=== PATIENT | female | born 1995 ===

== ENCOUNTER 2017-11-14 16:24 | Inpatient (IN) | payer SELFPAY ==
[~2017-11-14] VITALS: Ht 157.5 cm; Wt 84.8 kg
--- NOTE | 2017-11-14 16:42 | ED Fever ---
History of Present Illness General Stated Complaint: GENERAL PROBLEMS Source: patient Exam Limitations: no limitations History of Present Illness Date Seen by Provider: Nov 14, 2017 Time Seen by Provider: 16:41 Initial Comments Tanzanian-speaking only female presents to ER from [facility] with a report of 2 weeks of headache, neck ache, low back pain and dysuria. Poor appetite. Feverish. She completed a course of amoxicillin prescribed on 11/05/17 which was prescribed for the same complaints at [facility]. Timing/Duration: constant Associated Symptoms: headache, sore throat Allergies and Home Medications Allergies Coded Allergies: No Known Drug Allergies (Unverified , 11/14/17) Home Medications Unable to Obtain Active Prescriptions or Reported Meds Patient Home Medication List Home Medication List Reviewed: Yes Review of Systems Review of Systems Constitutional: see HPI, chills, fever, malaise, weakness EENTM: see HPI Respiratory: no symptoms reported Cardiovascular: no symptoms reported Genitourinary: no symptoms reported Musculoskeletal: see HPI, back pain Skin: no symptoms reported Psychiatric/Neurological: No Symptoms Reported Hematologic/Lymphatic: No Symptoms Reported Past Uzwdluh-Bgizhi-Xijihr Hx Patient Social History Recent Foreign Travel: No Contact w/Someone Who Travel: No Physical Exam Vital Signs - First Documented 11/14/17 16:49 Temp 98.2 Pulse 140 Resp 20 B/P (MAP) 143/85 (104) Pulse Ox 98 Capillary Refill : Height: '" Weight: lbs. oz. kg; BMI Method: General Appearance: WD/WN, no apparent distress Eyes: Bilateral Eye Normal Inspection, Bilateral Eye PERRL, Bilateral Eye EOMI HEENT: PERRL/EOMI, normal ENT inspection Neck: non-tender, full range of motion, other (no nuchal rigidity, able to flex chin to chest. ) Respiratory: no respiratory distress, no accessory muscle use Cardiovascular: no murmur, tachycardia Gastrointestinal: normal bowel sounds, non tender, soft Extremities: normal range of motion, non-tender Neurologic/Psychiatric: alert, normal mood/affect, oriented x 3 Skin: normal color, warm/dry Focused Exam Lactate Level 11/14/17 16:37: Lactic Acid Level 1.34 Lactic Acid Level Laboratory Tests Test 11/14/17 16:37 Lactic Acid Level 1.34 MMOL/L (0.50-2.00) Progress/Results/Core Measures Suspected Sepsis SIRS Temperature: Pulse: Respiratory Rate: Laboratory Tests 11/14/17 16:37: White Blood Count 16.2H Blood Pressure / Mean: 11/14/17 16:37: Lactic Acid Level 1.34 Laboratory Tests 11/14/17 16:37: Creatinine 0.75, Platelet Count 502H, Total Bilirubin 1.4H Results/Orders Lab Results Laboratory Tests Test 11/14/17 16:37 11/14/17 16:39 11/14/17 17:35 Range/Units White Blood Count 16.2 H 4.3-11.0 10^3/uL Red Blood Count 4.15 L 4.35-5.85 10^6/uL Hemoglobin 11.3 L 11.5-16.0 G/DL Hematocrit 35 35-52 % Mean Corpuscular Volume 83 80-99 FL Mean Corpuscular Hemoglobin 27 25-34 PG Mean Corpuscular Hemoglobin Concent 33 32-36 G/DL Red Cell Distribution Width 14.9 H 10.0-14.5 % Platelet Count 502 H 130-400 10^3/uL Mean Platelet Volume 9.7 7.4-10.4 FL Neutrophils (%) (Auto) 76 H 42-75 % Lymphocytes (%) (Auto) 15 12-44 % Monocytes (%) (Auto) 9 0-12 % Eosinophils (%) (Auto) 1 0-10 % Basophils (%) (Auto) 0 0-10 % Neutrophils # (Auto) 12.3 H 1.8-7.8 X 10^3 Lymphocytes # (Auto) 2.4 1.0-4.0 X 10^3 Monocytes # (Auto) 1.4 H 0.0-1.0 X 10^3 Eosinophils # (Auto) 0.2 0.0-0.3 10^3/uL Basophils # (Auto) 0.0 0.0-0.1 10^3/uL Neutrophils % (Manual) 81 % Lymphocytes % (Manual) 18 % Monocytes % (Manual) 1 % Eosinophils % (Manual) 0 % Basophils % (Manual) 0 % Band Neutrophils 0 % Blood Morphology Comment NORMAL Sodium Level 136 135-145 MMOL/L Potassium Level 3.8 3.6-5.0 MMOL/L Chloride Level 103 98-107 MMOL/L Carbon Dioxide Level 19 L 21-32 MMOL/L Anion Gap 14 5-14 MMOL/L Blood Urea Nitrogen 7 7-18 MG/DL Creatinine 0.75 0.60-1.30 MG/DL Estimat Glomerular Filtration Rate > 60 BUN/Creatinine Ratio 9 Glucose Level 105 70-105 MG/DL Lactic Acid Level 1.34 0.50-2.00 MMOL/L Calcium Level 9.3 8.5-10.1 MG/DL Corrected Calcium 9.2 8.5-10.1 MG/DL Total Bilirubin 1.4 H 0.1-1.0 MG/DL Aspartate Amino Transf (AST/SGOT) 18 5-34 U/L Alanine Aminotransferase (ALT/SGPT) 34 0-55 U/L Alkaline Phosphatase 112 40-136 U/L Total Protein 8.3 H 6.4-8.2 GM/DL Albumin 4.1 3.2-4.5 GM/DL Serum Test, Qualitative NEGATIVE NEGATIVE Monoscreen NEGATIVE NEGATIVE Group A Streptococcus Screen NEGATIVE NEGATIVE Urine Color YELLOW Urine Clarity CLEAR Urine pH 7 5-9 Urine Specific [place] 1.005 L 1.016-1.022 Urine Protein NEGATIVE NEGATIVE Urine Glucose (UA) NEGATIVE NEGATIVE Urine Ketones NEGATIVE NEGATIVE Urine Nitrite NEGATIVE NEGATIVE Urine Bilirubin NEGATIVE NEGATIVE Urine Urobilinogen 1 NORMAL MG/DL Urine Leukocyte Esterase 2+ H NEGATIVE Urine RBC (Auto) 2+ H NEGATIVE Urine RBC 0-2 /HPF Urine WBC 10-25 H /HPF Urine Squamous Epithelial Cells 5-10 /HPF Urine Crystals NONE /LPF Urine Bacteria MODERATE H /HPF Urine Casts NONE /LPF Urine Mucus NEGATIVE /LPF Urine Culture Indicated YES My Orders Orders - AIDA JO APRN Cbc With Automated Diff (11/14/17 16:27) Comprehensive Metabolic Panel (11/14/17 16:27) Ua Culture If Indicated (11/14/17 16:27) Blood Culture (11/14/17 16:27) Lactic Acid Analyzer (11/14/17 16:27) Hcg,Qualitative Serum (11/14/17 16:27) Rapid Strep A Screen (11/14/17 16:27) Monotest (11/14/17 16:27) Chest 1 View, Ap/Pa Only (11/14/17 16:27) Iv Heplock-Insert (Order) (11/14/17 16:27) Ct Head Wo (11/14/17 16:39) Ns Iv 1000 Ml (Sodium Chloride 0.9%) (11/14/17 16:45) Fentanyl Injection (Sublimaze Injection (11/14/17 16:45) Manual Differential (11/14/17 16:37) Ct Abdomen/Pelvis W (11/14/17 16:57) Iohexol Injection (Omnipaque 350 Mg/Ml 1 (11/14/17 17:45) Sodium Chloride Flush (Catheter Flush Sy (11/14/17 17:45) Ns (Ivpb) (Sodium Chloride 0.9%) (11/14/17 17:45) Pharmacy Communication (Pharmacy Communi (11/14/17 17:38) Urine Culture (11/14/17 17:35) Ns Iv 1000 Ml (Sodium Chloride 0.9%) (11/14/17 18:30) Medications Given in ED Current Medications Medications Dose Ordered Sig/Lino Route Start Time Stop Time Status Last Admin Dose Admin Fentanyl Citrate 50 mcg ONCE ONCE IVP 11/14/17 16:45 11/14/17 16:46 DC 11/14/17 16:45 50 MCG Iohexol 100 ml ONCE ONCE IV 11/14/17 17:45 11/14/17 17:46 DC 11/14/17 17:39 100 ML Sodium Chloride 10 ml NEEDED PRN IV 11/14/17 17:45 11/14/17 17:39 10 ML Sodium Chloride 250 ml ONCE ONCE IV 11/14/17 17:45 11/14/17 17:46 DC 11/14/17 17:39 80 ML Vital Signs/I&O 11/14/17 16:49 Temp 98.2 Pulse 140 Resp 20 B/P (MAP) 143/85 (104) Pulse Ox 98 Capillary Refill : Diagnostic Imaging Diagonstic Imaging: Xray Comments NAME: TALITA CHOWDHURY Francois [facility] REC#: [id number] PT STATUS: REG ER : 1995 PHYSICIAN: AIDA JO APRN ADMIT DATE: 11/14/17/ER Draft Date of Exam:11/14/17 CHEST 1 VIEW, AP/PA ONLY INDICATION: Elevated blood cell counts. FINDINGS: The heart size and vascularity are normal. The lungs are clear. No edema, pneumonia, effusion, or pneumothorax. IMPRESSION: Negative. Dictated on workstation # [id number] Dict: 11/14/17 1722 Trans: 11/14/17 1754 [id number] Interpreted by: DONAVAN GARSIA Electronically signed by: NAME: TALITA CHOWDHURY [facility] REC#: [id number] PT STATUS: REG ER : 1995 PHYSICIAN: AIDA JO APRN ADMIT DATE: 11/14/17/ER Draft Date of Exam:11/14/17 CT HEAD WO PROCEDURE: CT head without contrast. TECHNIQUE: Multiple contiguous axial images were obtained through the brain without the use of intravenous contrast. INDICATION: Headache and fever. Increased white blood cell count. Back pain. FINDINGS: There are no CT findings of acute intracranial hemorrhage. There is no evidence of intracranial mass effect or shift. There is no hydrocephalus. There is no abnormal extra-axial fluid collection. There are no findings of territorial loss of coburn-white differentiation. There is no abnormal hypodensity within the basal ganglia. Posterior fossa unremarkable. The mastoid air cells appear clear. Visualized paranasal sinuses are clear. Orbital contents unremarkable. There is no acute calvarial abnormality. IMPRESSION: 1. No CT evidence of an acute intracranial abnormality. 2. Negative head CT does not, however, exclude the possibility of meningitis. Dictated on workstation # [id number] Dict: 11/14/17 1740 Trans: 11/14/17 1754 [facility] [id number] Interpreted by: ZECHARIAH AVERY MD Electronically signed by: NAME: TALITA CHOWDHURY [facility] REC#: [id number] PT STATUS: REG ER : 1995 PHYSICIAN: AIDA JO APRN ADMIT DATE: 11/14/17/ER Draft Date of Exam:11/14/17 CT ABDOMEN/PELVIS W PROCEDURE: CT abdomen and pelvis with contrast. TECHNIQUE: Multiple contiguous axial images were obtained through the abdomen and pelvis after administration of intravenous contrast. INDICATION: Head pain, fever, elevated white blood cell count, back pain. I have no priors. There are no opaque urinary tract calculi, however, the some mild ectasia of the right ureter showing urothelial thickening at its mid to proximal third as well as some urothelial thickening at the right renal pelvis. The right renal parenchyma also appears somewhat heterogeneous and hypoenhancing. The right kidney may be mildly enlarged when compared to the left and there is some mild right-sided perinephric edema. The constellation of findings are suggestive of features owing to pyelonephritis, correlate with urinalysis if not already performed. As an alternative in the appropriate clinical scenario, this pattern can be seen in the setting of a recently passed stone, however, no stones within the bladder lumen are evident. The left kidney and ureter appeared unremarkable. The liver, gallbladder, spleen, adrenals and pancreas unremarkable. The osseous structures appeared unremarkable. There is no abscess or fluid collection. The uterus and adnexa normal. IMPRESSION: 1. CT findings are most suggestive of a right-sided pyelonephritis without abscess. There is mild perinephric edema and mild urothelial thickening with minimal ureteral ectasia. Recently passed stone could conceivably have this appearance but is felt less likely, although warrants clinical correlation and urinalysis. 2. No other acute appearing abnormality. Dictated on workstation # [id number] Dict: 11/14/17 1739 Trans: 11/14/17 1819 [facility] [id number] Interpreted by: DONAVAN GARSIA Electronically signed by: Departure Communication (Admissions) Time/Spoke to Admitting Phy: 18:35 1835-she feels overall better but some persistent right flank pain. Another 50 g of fentanyl ordered. We will do Rocephin. I spoke with Dr. Alexandre. We'll admit observation IV fluids and Rocephin and antipyretics. Impression Primary Impression: Urinary tract infection Qualified Codes: N10 - Acute pyelonephritis Additional Impression: Pyelonephritis Disposition: 01 HOME, SELF-CARE Condition: Stable Admissions Decision to Admit Reason: Admit from ER (General) Decision to Admit/Date: Nov 14, 2017 Time/Decision to Admit Time: 18:35 Departure-Patient Inst. Referrals: NO,LOCAL PHYSICIAN (PCP/Family) Primary Care Physician Scripts Unable to Obtain Active Prescriptions or Reported Meds AIDA JO APRN Nov 14, 2017 16:42
[2017-11-14] MEDS ORDERED: NS IV 1000 ML 1,000 ML IV SCH ×2 (16:45→18:30)
[2017-11-14] MEDS ORDERED: fentaNYL INJECTION 100 MCG/2 ML AMP IVP ONE ×2 (16:45→18:45)
[2017-11-14 16:48] LABS: BASOPHILS % (AUTO) 0 % (0-10); EOSINOPHILS # (AUTO) 0.2 10^3/uL (0.0-0.3); EOSINOPHILS % (AUTO) 1 % (0-10); HEMATOCRIT 35 % (35-52); HEMOGLOBIN 11.3 G/DL (11.5-16.0); LYMPHOCYTES # (AUTO) 2.4 X 10^3 (1.0-4.0); LYMPHOCYTES % (AUTO) 15 % (12-44); MEAN CORPUSCULAR HEMOGLOBIN 27 PG (25-34); MEAN CORPUSCULAR HGB CONC 33 G/DL (32-36); MEAN CORPUSCULAR VOLUME 83 FL (80-99); MEAN PLATELET VOLUME 9.7 FL (7.4-10.4); MONOCYTES # (AUTO) 1.4 X 10^3 (0.0-1.0); MONOCYTES % (AUTO) 9 % (0-12); NEUTROPHILS # (AUTO) 12.3 X 10^3 (1.8-7.8); NEUTROPHILS % (AUTO) 76 % (42-75); PLATELET COUNT 502 10^3/uL (130-400); RED BLOOD COUNT 4.15 10^6/uL (4.35-5.85); RED CELL DISTRIBUTION WIDTH 14.9 % (10.0-14.5); WHITE BLOOD COUNT 16.2 10^3/uL (4.3-11.0)
[2017-11-14 17:07] LABS: ALANINE AMINOTRANSFERASE 34 U/L (0-55); ALBUMIN 4.1 GM/DL (3.2-4.5); ALKALINE PHOSPHATASE 112 U/L (40-136); BILIRUBIN,TOTAL 1.4 MG/DL (0.1-1.0); BUN/CREATININE RATIO 9; CALCIUM 9.3 MG/DL (8.5-10.1); CARBON DIOXIDE 19 MMOL/L (21-32); CHLORIDE 103 MMOL/L (98-107); CREATININE SERUM 0.75 MG/DL (0.60-1.30); GFR ESTIMATED > 60; GLUCOSE 105 MG/DL (70-105); POTASSIUM 3.8 MMOL/L (3.6-5.0); SODIUM 136 MMOL/L (135-145); TOTAL PROTEIN 8.3 GM/DL (6.4-8.2)
[2017-11-14 17:15] LABS: BAND NEUTROPHILS 0 %; BASOPHILS % (MANUAL) 0 %; EOSINOPHILS % (MANUAL) 0 %; LYMPHOCYTES % (MANUAL) 18 %; MONOCYTES % (MANUAL) 1 %; NEUTROPHILS % (MANUAL) 81 %; RBC MORPH NORMAL
[2017-11-14 17:39] LABS: BILIRUBIN,URINE NEGATIVE (NEGATIVE); CLARITY,URINE CLEAR; COLOR,URINE YELLOW; GLUCOSE, URINE (UA) NEGATIVE (NEGATIVE); KETONES,URINE NEGATIVE (NEGATIVE); LEUKOCYTE ESTERASE ,URINE 2+ (NEGATIVE); NITRITE,URINE NEGATIVE (NEGATIVE); PH,URINE 7 (5-9); PROTEIN,URINE NEGATIVE (NEGATIVE); UROBILINOGEN,URINE 1 MG/DL (NORMAL)
[2017-11-14 17:45] LABS: BACTERIA,URINE MODERATE /HPF; RBC,URINE 0-2 /HPF
[2017-11-14] MEDS ORDERED: CATHETER FLUSH 10 ML SYR IV PRN (17:45)
[2017-11-14] MEDS ORDERED: NS 250 ML (IVPB) BAG IV ONE (17:45)
[2017-11-14] MEDS ORDERED: IOHEXOL 350 MG/ML 100 ML (OMNIPAQUE 350) VIAL IV ONE (17:45)
--- NOTE | 2017-11-14 17:54 | Diagnostic Imaging Report ---
INDICATION: Elevated blood cell counts. FINDINGS: The heart size and vascularity are normal. The lungs are clear. No edema, pneumonia, effusion, or pneumothorax. IMPRESSION: Negative. Dictated by: Dictated on workstation # [id number]
--- NOTE | 2017-11-14 17:55 | Diagnostic Imaging Report ---
PROCEDURE: CT head without contrast. TECHNIQUE: Multiple contiguous axial images were obtained through the brain without the use of intravenous contrast. INDICATION: Headache and fever. Increased white blood cell count. Back pain. FINDINGS: There are no CT findings of acute intracranial hemorrhage. There is no evidence of intracranial mass effect or shift. There is no hydrocephalus. There is no abnormal extra-axial fluid collection. There are no findings of territorial loss of coburn-white differentiation. There is no abnormal hypodensity within the basal ganglia. Posterior fossa unremarkable. The mastoid air cells appear clear. Visualized paranasal sinuses are clear. Orbital contents unremarkable. There is no acute calvarial abnormality. IMPRESSION: 1. No CT evidence of an acute intracranial abnormality. 2. Negative head CT does not, however, exclude the possibility of meningitis. Dictated by: Dictated on workstation # [id number]
--- NOTE | 2017-11-14 18:20 | Diagnostic Imaging Report ---
PROCEDURE: CT abdomen and pelvis with contrast. TECHNIQUE: Multiple contiguous axial images were obtained through the abdomen and pelvis after administration of intravenous contrast. INDICATION: Head pain, fever, elevated white blood cell count, back pain. I have no priors. There are no opaque urinary tract calculi, however, the some mild ectasia of the right ureter showing urothelial thickening at its mid to proximal third as well as some urothelial thickening at the right renal pelvis. The right renal parenchyma also appears somewhat heterogeneous and hypoenhancing. The right kidney may be mildly enlarged when compared to the left and there is some mild right-sided perinephric edema. The constellation of findings are suggestive of features owing to pyelonephritis, correlate with urinalysis if not already performed. As an alternative in the appropriate clinical scenario, this pattern can be seen in the setting of a recently passed stone, however, no stones within the bladder lumen are evident. The left kidney and ureter appeared unremarkable. The liver, gallbladder, spleen, adrenals and pancreas unremarkable. The osseous structures appeared unremarkable. There is no abscess or fluid collection. The uterus and adnexa normal. IMPRESSION: 1. CT findings are most suggestive of a right-sided pyelonephritis without abscess. There is mild perinephric edema and mild urothelial thickening with minimal ureteral ectasia. Recently passed stone could conceivably have this appearance but is felt less likely, although warrants clinical correlation and urinalysis. 2. No other acute appearing abnormality. Dictated by: Dictated on workstation # [id number]
[2017-11-14] MEDS ORDERED: cefTRIAXone FOR IV USE 1,000 MG in NS (IVPB) 50 ML IV ONE (18:45)
[2017-11-14 20:05] VITALS: BP 121/63
[2017-11-14] MEDS ORDERED: ONDANSETRON 4 MG/2 ML (SDV) Z0FRAN IVP PRN (20:30)
[2017-11-14] MEDS: NS IV 1000 ML 1,000 ML IV SCH (21:20)
[2017-11-14] MEDS: fentaNYL INJECTION 100 MCG/2 ML AMP IVP PRN (21:20)
[2017-11-15] MEDS: fentaNYL INJECTION 100 MCG/2 ML AMP IVP PRN ×3 (00:01→11:25)
[2017-11-15] MEDS: IBUPROFEN 800 MG (MOTRIN) TAB PO PRN ×3 (00:02→20:44)
[2017-11-15 00:13] VITALS: BP 134/82
[2017-11-15] MEDS: ACETAMINOPHEN 325 MG TABLET PO PRN ×3 (00:38→17:42)
[2017-11-15 04:00] VITALS: BP 121/65
[2017-11-15] MEDS: NS IV 1000 ML 1,000 ML IV SCH ×3 (05:27→22:27)
[2017-11-15 06:08] LABS: BASOPHILS % (AUTO) 0 % (0-10); EOSINOPHILS # (AUTO) 0.3 10^3/uL (0.0-0.3); EOSINOPHILS % (AUTO) 2 % (0-10); HEMATOCRIT 30 % (35-52); HEMOGLOBIN 9.9 G/DL (11.5-16.0); LYMPHOCYTES # (AUTO) 2.8 X 10^3 (1.0-4.0); LYMPHOCYTES % (AUTO) 27 % (12-44); MEAN CORPUSCULAR HEMOGLOBIN 28 PG (25-34); MEAN CORPUSCULAR HGB CONC 33 G/DL (32-36); MEAN CORPUSCULAR VOLUME 85 FL (80-99); MEAN PLATELET VOLUME 9.8 FL (7.4-10.4); MONOCYTES # (AUTO) 1.2 X 10^3 (0.0-1.0); MONOCYTES % (AUTO) 12 % (0-12); NEUTROPHILS % (AUTO) 58 % (42-75); PLATELET COUNT 390 10^3/uL (130-400); RED BLOOD COUNT 3.54 10^6/uL (4.35-5.85); RED CELL DISTRIBUTION WIDTH 14.7 % (10.0-14.5); WHITE BLOOD COUNT 10.3 10^3/uL (4.3-11.0)
[2017-11-15 06:31] LABS: ALANINE AMINOTRANSFERASE 35 U/L (0-55); ALBUMIN 3.4 GM/DL (3.2-4.5); ALKALINE PHOSPHATASE 99 U/L (40-136); BILIRUBIN,TOTAL 0.8 MG/DL (0.1-1.0); BUN/CREATININE RATIO 11; CALCIUM 8.5 MG/DL (8.5-10.1); CARBON DIOXIDE 20 MMOL/L (21-32); CHLORIDE 109 MMOL/L (98-107); CREATININE SERUM 0.63 MG/DL (0.60-1.30); GFR ESTIMATED > 60; GLUCOSE 115 MG/DL (70-105); POTASSIUM 3.7 MMOL/L (3.6-5.0); SODIUM 138 MMOL/L (135-145); TOTAL PROTEIN 6.6 GM/DL (6.4-8.2)
[2017-11-15] MEDS ORDERED: FLU QUADRIvalent (5+ YOA) 2018-2019 (AFLURIA) 0.5 ML IM ONE (07:30)
[2017-11-15 08:00] VITALS: BP 103/61
[2017-11-15 12:00] VITALS: BP 135/63
--- NOTE | 2017-11-15 13:32 | History & Physicial (CHS) ---
HPI History of Present Illness: 22 yo F that has a week h/o febile illness. Patient states that she has been getting worse over the last few days and now having fevers with Right back pain and headache. She also had not had a BM in the last 5 days. States that she has not been able to eat due to nausea. Never had anything like this in the past Source: patient, family (Sister was translating for patient) Exam Limitations: no limitations Date seen by provider: Nov 15, 2017 Time Seen by Provider: 11:45 Attending Physician Pura Alexandre MD [place] [place] Consult Date of Admission Nov 14, 2017 at 6:34 pm Home Medications Home Medications Reviewed patient Home Medication Reconciliation performed by pharmacy medication reconciliations video game repair technician and/or nursing. Patients Allergies have been reviewed. Allergies Coded Allergies: No Known Drug Allergies (Unverified , 11/14/17) EIA-Wqcszd-Ejalch Hx Patient Social History Living Status: Lives with parents Alcohol Use: Occasionally Uses Recreational Drug Use: No Smoking Status: Current Everyday Smoker Type Used: Cigarettes Recent Foreign Travel: No Contact w/other who traveled: No Recent Hopitalizations: No Recent Infectious Disease Expo: No Physical Abuse Screen: No Sexual Abuse: No Past Medical History NA Review of Systems ([facility]) Constitutional: chills, fever, malaise EENTM: no symptoms reported; No throat pain Respiratory: no symptoms reported; No cough, No dyspnea on exertion, No short of breath, No wheezing Cardiovascular: no symptoms reported; No chest pain, No edema, No palpitations Gastrointestinal: abdominal pain, loss of appetite, nausea, vomiting Genitourinary: dysuria, frequency, hesitancy : No Musculoskeletal: back pain (Right sided) Skin: no symptoms reported Psychiatric/Neurological: Headache; Denies Numbness, Denies Weakness Reviewed Test Results Reviewed Test Results Lab Laboratory Tests 11/14/17 16:37 11/15/17 05:27 Radiology Date of Exam: 11/14/17 CT ABDOMEN/PELVIS W PROCEDURE: CT abdomen and pelvis with contrast. TECHNIQUE: Multiple contiguous axial images were obtained through the abdomen and pelvis after administration of intravenous contrast. INDICATION: Head pain, fever, elevated white blood cell count, back pain. I have no priors. There are no opaque urinary tract calculi, however, the some mild ectasia of the right ureter showing urothelial thickening at its mid to proximal third as well as some urothelial thickening at the right renal pelvis. The right renal parenchyma also appears somewhat heterogeneous and hypoenhancing. The right kidney may be mildly enlarged when compared to the left and there is some mild right-sided perinephric edema. The constellation of findings are suggestive of features owing to pyelonephritis, correlate with urinalysis if not already performed. As an alternative in the appropriate clinical scenario, this pattern can be seen in the setting of a recently passed stone, however, no stones within the bladder lumen are evident. The left kidney and ureter appeared unremarkable. The liver, gallbladder, spleen, adrenals and pancreas unremarkable. The osseous structures appeared unremarkable. There is no abscess or fluid collection. The uterus and adnexa normal. IMPRESSION: 1. CT findings are most suggestive of a right-sided pyelonephritis without abscess. There is mild perinephric edema and mild urothelial thickening with minimal ureteral ectasia. Recently passed stone could conceivably have this appearance but is felt less likely, although warrants clinical correlation and urinalysis. 2. No other acute appearing abnormality. Physical Exam-(CHC) Physical Exam Vital Signs VS - Last 72 Hours, by Label 11/14/17 11/14/17 11/14/17 11/14/17 16:49 19:45 20:05 22:48 Temp 98.2 98.2 98.3 Pulse 140 140 96 92 Resp 20 20 18 B/P (MAP) 143/85 (104) 143/85 (104) 121/63 (82) Pulse Ox 98 98 99 O2 Delivery Room Air 11/15/17 11/15/17 11/15/17 11/15/17 00:02 00:13 00:36 00:38 Temp 100.2 100.2 101.7 101.7 Pulse 108 Resp 18 B/P (MAP) 134/82 (99) Pulse Ox 99 O2 Delivery Room Air 11/15/17 11/15/17 11/15/17 11/15/17 01:00 01:15 04:00 07:00 Temp 101.4 97.9 Pulse 107 80 75 Resp 18 B/P (MAP) 121/65 (83) Pulse Ox 99 O2 Delivery Room Air 11/15/17 11/15/17 11/15/17 08:00 12:00 12:01 Temp 97.5 101.3 101.5 Pulse 90 109 Resp 22 22 B/P (MAP) 103/61 (75) 135/63 (87) Pulse Ox 99 97 O2 Delivery Room Air Room Air Capillary Refill : Less Than 3 Seconds General Appearance: mild distress HEENT: PERRL/EOMI, pharynx normal Neck: non-tender, full range of motion, supple Respiratory: chest non-tender, normal breath sounds, no respiratory distress, no accessory muscle use Cardiovascular: regular rate, rhythm, no edema, no murmur Gastrointestinal: normal bowel sounds, soft, no organomegaly, tenderness ( Right upper and lower abdominal pain) Back: CVA tenderness (R) Extremities: normal range of motion, non-tender, normal inspection, no pedal edema, no calf tenderness, normal capillary refill Neurologic/Psychiatric: hot wire glass tube cutter II-XII nml as tested, no motor/sensory deficits, alert, normal mood/affect, oriented x 3 Skin: diaphoresis Lymphatic: no adenopathy Assessment/Plan Assessment/Plan Admission Status: Inpatient Order (span 2 midnights) Reason for Inpatient Admission: Continues to be febrile and require IV antiboitics due to severe N/V (1) Pyelonephritis Status: Acute Assessment & Plan: - Continue IV Rocephin, Culture pending (2) Nausea & vomiting Status: Acute Assessment & Plan: - Zofran PRN, IV fluids running 125 cc/hr Qualifiers: Qualified Codes: R11.2 - Nausea with vomiting, unspecified (3) Constipation Status: Acute Assessment & Plan: - Started on Senna-S Qualifiers: Qualified Codes: K59.00 - Constipation, unspecified Clinical Quality Measures DVT/VTE Risk/Contraindication: Risk Factor Score Per Nursin RFS Level Per Nursing on Admit: 1=Low/No VTE PPX Copy Copies To 1: SAMIA SOTO MD, HOLLY R MD Nov 15, 2017 1:32 pm
[2017-11-15] MEDS: SENNA W/DOCUSATE (SENOKOT S) TABLET PO SCH ×2 (14:34→20:44)
[2017-11-15 16:00] VITALS: BP 120/64
[2017-11-15] MEDS: cefTRIAXone 1 GM/NS 50 ML IVPB IV SCH ×2 (18:16)
[2017-11-15] MEDS ORDERED: KETOROLAC 30 MG/ML VIAL ONE (18:24)
[2017-11-15] MEDS ORDERED: KETOROLAC 30 MG/ML VIAL IVP ONE (18:30)
[2017-11-15 19:48] VITALS: BP 135/62
[2017-11-16] VITALS: BP 128/64
[2017-11-16 04:00] VITALS: BP 115/72
[2017-11-16 05:41] LABS: BASOPHILS % (AUTO) 0 % (0-10); EOSINOPHILS # (AUTO) 0.4 10^3/uL (0.0-0.3); EOSINOPHILS % (AUTO) 4 % (0-10); HEMATOCRIT 31 % (35-52); HEMOGLOBIN 9.9 G/DL (11.5-16.0); LYMPHOCYTES % (AUTO) 29 % (12-44); MEAN CORPUSCULAR HEMOGLOBIN 27 PG (25-34); MEAN CORPUSCULAR HGB CONC 32 G/DL (32-36); MEAN CORPUSCULAR VOLUME 85 FL (80-99); MEAN PLATELET VOLUME 9.5 FL (7.4-10.4); MONOCYTES # (AUTO) 1.1 X 10^3 (0.0-1.0); MONOCYTES % (AUTO) 11 % (0-12); NEUTROPHILS # (AUTO) 5.9 X 10^3 (1.8-7.8); NEUTROPHILS % (AUTO) 56 % (42-75); PLATELET COUNT 434 10^3/uL (130-400); RED BLOOD COUNT 3.63 10^6/uL (4.35-5.85); WHITE BLOOD COUNT 10.4 10^3/uL (4.3-11.0)
[2017-11-16 06:07] LABS: ALANINE AMINOTRANSFERASE 32 U/L (0-55); ALBUMIN 3.4 GM/DL (3.2-4.5); ALKALINE PHOSPHATASE 101 U/L (40-136); BILIRUBIN,TOTAL 0.4 MG/DL (0.1-1.0); BUN/CREATININE RATIO 13; CALCIUM 8.9 MG/DL (8.5-10.1); CARBON DIOXIDE 22 MMOL/L (21-32); CHLORIDE 110 MMOL/L (98-107); CREATININE SERUM 0.63 MG/DL (0.60-1.30); GFR ESTIMATED > 60; GLUCOSE 104 MG/DL (70-105); POTASSIUM 3.9 MMOL/L (3.6-5.0); SODIUM 139 MMOL/L (135-145); TOTAL PROTEIN 6.9 GM/DL (6.4-8.2)
[2017-11-16] MEDS: NS IV 1000 ML 1,000 ML IV SCH ×3 (06:30→23:08)
[2017-11-16 08:00] VITALS: BP 113/59
[2017-11-16] MEDS: SENNA W/DOCUSATE (SENOKOT S) TABLET PO SCH ×2 (09:45→20:11)
[2017-11-16] MEDS: ACETAMINOPHEN 325 MG TABLET PO PRN (09:46)
[2017-11-16 12:00] VITALS: BP 115/59
[2017-11-16] MEDS: IBUPROFEN 800 MG (MOTRIN) TAB PO PRN (12:24)
[2017-11-16] MEDS: fentaNYL INJECTION 100 MCG/2 ML AMP IVP PRN (12:45)
[2017-11-16] MEDS ORDERED: HYDROcodone/APAP 5 MG/325 MG (LORTAB) TAB PO PRN (14:30)
[2017-11-16] MEDS ORDERED: RAMELTEON 8 MG (ROZEREM) TAB PO PRN (14:30)
--- NOTE | 2017-11-16 14:41 | Progress Note (SOAP) ---
Subjective Subjective/Events-last exam Patient remained febrile a significant portion of yesterday, with her Tmax being 102.8 at 1830 last night. This afternoon she is feeling week and continues to have back pain that has been somewhat difficult to control with previously ordered medications. She has a poor appetite and feels very tired, according to her spouse, who is helping to translate. Encouraged to get up and ambulate with assistance, we will make some adjustments to control her pain better, and hopefully she will be ready to go home tomorrow if she is able to remain fever free for at least 24 hours. Spouse is at bedside, helping to translate, and he verbalizes understanding and states the patient understands. Nursing staff state that patient has been in bed most of the day and they have had a difficult time getting her up, as well as sometimes a difficult time controlling her pain - will make adjustments to see if that improves pain control. Review of Systems Date Seen by Provider: Nov 16, 2017 Time Seen by Provider: 14:13 General: Chills, Night Sweats, Fatigue HEENT: Head Aches; No Visual Changes, No Dysphasia Pulmonary: No Dyspnea, No Cough Cardiovascular: No: Chest Pain, Edema Gastrointestinal: Nausea; No: Vomiting, Abdominal Pain Genitourinary: Dysuria; No Incontinence Musculoskeletal: back pain Neurological: Weakness; No: Numbness, Incoordination, Confusion Focused Exam Lactate Level 11/14/17 16:37: Lactic Acid Level 1.34 Objective Exam Last Set of Vital Signs Vital Signs Date Time Temp Pulse Resp B/P (MAP) Pulse Ox O2 Delivery O2 Flow Rate FiO2 11/16/17 13:00 87 11/16/17 12:00 99.4 22 115/59 (77) 97 Room Air Capillary Refill : Less Than 3 Seconds I&O Intake and Output 11/16/17 00:00 Intake Total 4200 ml Balance 4200 ml Intake Oral 1200 ml IV Total 3000 ml # Voids 7 General: Alert, Oriented X3, Cooperative, Mild Distress HEENT: Atraumatic, EOMI, Mucous Memb Moist/[place]: Supple, No Thyromegaly Lungs: Clear to Auscultation, Normal Air Movement Heart: Regular Rate, Normal S1, Normal S2, Other (II/ systolic murmur best heard at LUSB) Abdomen: Normal Bowel Sounds, Soft, No Tenderness, No Masses Extremities: No Clubbing, No Cyanosis, Normal Pulses, No Tenderness/Swelling Skin: No Rashes, No Significant Lesion Neuro: Normal Speech, Normal Tone, Sensation Intact, Cranial Nerves 3-12 NL Psych/Mental Status: Mental Status NL, Mood NL Results/Procedures Lab Laboratory Tests 11/16/17 05:15: White Blood Count 10.4, Red Blood Count 3.63L, Hemoglobin 9.9L, Hematocrit 31L, Mean Corpuscular Volume 85, Mean Corpuscular Hemoglobin 27, Mean Corpuscular Hemoglobin Concent 32, Red Cell Distribution Width 15.0H, Platelet Count 434H, Mean Platelet Volume 9.5, Neutrophils (%) (Auto) 56, Lymphocytes (%) (Auto) 29, Monocytes (%) (Auto) 11, Eosinophils (%) (Auto) 4, Basophils (%) (Auto) 0, Neutrophils # (Auto) 5.9, Lymphocytes # (Auto) 3.0, Monocytes # (Auto) 1.1H, Eosinophils # (Auto) 0.4H, Basophils # (Auto) 0.0, Sodium Level 139, Potassium Level 3.9, Chloride Level 110H, Carbon Dioxide Level 22, Anion Gap 7, Blood Urea Nitrogen 8, Creatinine 0.63, Estimat Glomerular Filtration Rate > 60, BUN/ Creatinine Ratio 13, Glucose Level 104, Calcium Level 8.9, Corrected Calcium 9.4 , Total Bilirubin 0.4, Aspartate Amino Transf (AST/SGOT) 18, Alanine Aminotransferase (ALT/SGPT) 32, Alkaline Phosphatase 101, Total Protein 6.9, Albumin 3.4 Microbiology 11/14/17 Blood Culture - Preliminary, Resulted No growth 11/14/17 Throat Culture - Preliminary, Resulted No Beta Strep isolated 11/14/17 Urine Culture - Final, Complete Escherichia coli Radiology Date of Exam: 11/14/17 CT ABDOMEN/PELVIS W PROCEDURE: CT abdomen and pelvis with contrast. TECHNIQUE: Multiple contiguous axial images were obtained through the abdomen and pelvis after administration of intravenous contrast. INDICATION: Head pain, fever, elevated white blood cell count, back pain. I have no priors. There are no opaque urinary tract calculi, however, the some mild ectasia of the right ureter showing urothelial thickening at its mid to proximal third as well as some urothelial thickening at the right renal pelvis. The right renal parenchyma also appears somewhat heterogeneous and hypoenhancing. The right kidney may be mildly enlarged when compared to the left and there is some mild right-sided perinephric edema. The constellation of findings are suggestive of features owing to pyelonephritis, correlate with urinalysis if not already performed. As an alternative in the appropriate clinical scenario, this pattern can be seen in the setting of a recently passed stone, however, no stones within the bladder lumen are evident. The left kidney and ureter appeared unremarkable. The liver, gallbladder, spleen, adrenals and pancreas unremarkable. The osseous structures appeared unremarkable. There is no abscess or fluid collection. The uterus and adnexa normal. IMPRESSION: 1. CT findings are most suggestive of a right-sided pyelonephritis without abscess. There is mild perinephric edema and mild urothelial thickening with minimal ureteral ectasia. Recently passed stone could conceivably have this appearance but is felt less likely, although warrants clinical correlation and urinalysis. 2. No other acute appearing abnormality. Assessment/Plan Assessment/Plan (1) Pyelonephritis Status: Acute Assessment & Plan: - Continue IV Rocephin, Culture pending 11/16 -Day 3 Rocephin -continue IV abx and IV Fluids -ahuja sensitive e coli per culture -when patient is tolerating PO better, will change to oral medication -anticipate she will be ready for discharge to home tomorrow with oral medication (2) Nausea & vomiting Status: Resolved Assessment & Plan: - Zofran PRN, IV fluids running 125 cc/hr 11/16 -pt has been able to tolerate small amounts of PO -continue IV fluids at 125/hr -encouraged PO intake and to ask for medication if become nauseated Qualifiers: Qualified Codes: R11.2 - Nausea with vomiting, unspecified (3) Constipation Status: Acute Assessment & Plan: - Started on Senna-S Qualifiers: Qualified Codes: K59.00 - Constipation, unspecified (4) Back pain Status: Acute Assessment & Plan: 11/16 -secondary to pyleonephritis -schedule toradol 30 mg Q6 hours x4 doses for pain control, encouraged ambulation -PT consulted -[place] 5/325, 1-2 tabs PO Q6H PRN pain if tolerating PO -Fentanyl IV if unable to tolerate PO or if pain no controlled by above -anticipate pt will be able to discharge tomorrow with PO medications Qualifiers: Qualified Codes: M54.5 - Low back pain Clinical Quality Measures DVT/VTE Risk/Contraindication: Risk Factor Score Per Nursin RFS Level Per Nursing on Admit: 1=Low/No VTE PPX Copy Copies To 1: [facility]/DILCIA CHAVARRIA DO Nov 16, 2017 14:41
--- NOTE | 2017-11-16 14:52 | Physical Therapy Progress Note ---
Therapy Progress Note Patient is up independently per RN. PT consulted with RN on encouraging her to ambulate PRN in hallway. PT will check patient status in a.m. to determine skilled PT need. CAROLINA GORMAN PT Nov 16, 2017 14:52
[2017-11-16 15:25] VITALS: BP 112/67
[2017-11-16] MEDS: cefTRIAXone 1 GM/NS 50 ML IVPB IV SCH ×2 (18:18)
[2017-11-16] MEDS: KETOROLAC 30 MG/ML VIAL IVP SCH ×2 (18:19→19:04)
[2017-11-16 19:20] VITALS: BP 113/65
[2017-11-17] VITALS: BP 122/67
[2017-11-17] MEDS: KETOROLAC 30 MG/ML VIAL IVP SCH ×2 (02:17→09:31)
[2017-11-17 04:00] VITALS: BP 120/69
[2017-11-17 06:00] LABS: BASOPHILS % (AUTO) 0 % (0-10); EOSINOPHILS # (AUTO) 0.4 10^3/uL (0.0-0.3); EOSINOPHILS % (AUTO) 4 % (0-10); HEMATOCRIT 30 % (35-52); HEMOGLOBIN 9.9 G/DL (11.5-16.0); LYMPHOCYTES % (AUTO) 29 % (12-44); MEAN CORPUSCULAR HEMOGLOBIN 28 PG (25-34); MEAN CORPUSCULAR HGB CONC 33 G/DL (32-36); MEAN CORPUSCULAR VOLUME 85 FL (80-99); MEAN PLATELET VOLUME 9.6 FL (7.4-10.4); MONOCYTES # (AUTO) 0.7 X 10^3 (0.0-1.0); MONOCYTES % (AUTO) 7 % (0-12); NEUTROPHILS # (AUTO) 6.1 X 10^3 (1.8-7.8); NEUTROPHILS % (AUTO) 60 % (42-75); PLATELET COUNT 510 10^3/uL (130-400); RED BLOOD COUNT 3.56 10^6/uL (4.35-5.85); RED CELL DISTRIBUTION WIDTH 14.6 % (10.0-14.5); WHITE BLOOD COUNT 10.2 10^3/uL (4.3-11.0)
[2017-11-17 06:20] LABS: BUN/CREATININE RATIO 15; CARBON DIOXIDE 21 MMOL/L (21-32); CHLORIDE 110 MMOL/L (98-107); CREATININE SERUM 0.61 MG/DL (0.60-1.30); GFR ESTIMATED > 60; GLUCOSE 105 MG/DL (70-105); POTASSIUM 4.2 MMOL/L (3.6-5.0); SODIUM 139 MMOL/L (135-145)
[2017-11-17] MEDS: NS IV 1000 ML 1,000 ML IV SCH (07:05)
[2017-11-17 08:00] VITALS: BP 131/78
--- NOTE | 2017-11-17 09:09 | Physical Therapy Progress Note ---
Therapy Progress Note This PT observed Patient is ambulating independently in hallway without difficulty. No skilled PT indicated. Thank you for this referral. CAROLINA GORMAN PT Nov 17, 2017 09:09
[2017-11-17] MEDS: SENNA W/DOCUSATE (SENOKOT S) TABLET PO SCH (09:30)
--- NOTE | 2017-11-17 11:41 | Discharge Summary ---
Diagnosis/Chief Complaint Date of Admission Nov 16, 2017 at 14:27 Date of Discharge 11/17/17 Admission Diagnosis Admission Diagnosis (1) Pyelonephritis (2) Nausea & vomiting (3) Constipation Discharge Diagnosis (1) Pyelonephritis Status: Acute Assessment & Plan: - Continue IV Rocephin, Culture pending 11/16 -Day 3 Rocephin -continue IV abx and IV Fluids -ahuja sensitive e coli per culture -when patient is tolerating PO better, will change to oral medication -anticipate she will be ready for discharge to home tomorrow with oral medication 11/17 -Day 4 Rocephin -afebrile x more than 24 hours -pain significantly improved and pt tolerating PO -urine culture shows ahuja sensitive e coli -discharge to home on Bactrim DS BID x5 days (2) Nausea & vomiting Status: Resolved Assessment & Plan: - Zofran PRN, IV fluids running 125 cc/hr 11/16 -pt has been able to tolerate small amounts of PO -continue IV fluids at 125/hr -encouraged PO intake and to ask for medication if become nauseated 11/17 -continues to tolerate PO without difficulty Qualifiers: Qualified Codes: R11.2 - Nausea with vomiting, unspecified (3) Constipation Status: Acute Assessment & Plan: - Started on Senna-S Qualifiers: Qualified Codes: K59.00 - Constipation, unspecified (4) Back pain Status: Acute Assessment & Plan: 11/16 -secondary to pyleonephritis -schedule toradol 30 mg Q6 hours x4 doses for pain control, encouraged ambulation -PT consulted -[place] 5/325, 1-2 tabs PO Q6H PRN pain if tolerating PO -Fentanyl IV if unable to tolerate PO or if pain no controlled by above -anticipate pt will be able to discharge tomorrow with PO medications 11/17 -pt only received 3/4 doses of toradol, back pain has mostly resolved -discharge home, patient thinks that she will be ok with tylenol and motrin OTC only for pain -has not required any additional pain medication Qualifiers: Qualified Codes: M54.5 - Low back pain Chief Complaint/HPI Chief Complaint/HPI 22 yo F that has a week h/o febile illness. Patient states that she has been getting worse over the last few days and now having fevers with Right back pain and headache. She also had not had a BM in the last 5 days. States that she has not been able to eat due to nausea. Never had anything like this in the past Discharge Summary-Simple/Stand Consultations Discharge Physical Examination Allergies: Coded Allergies: No Known Drug Allergies (Unverified , 11/14/17) Vitals & I&Os Vital Sign - Last 12Hours Date Time Temp Pulse Resp B/P (MAP) Pulse Ox O2 Delivery O2 Flow Rate FiO2 11/17/17 08:00 98.1 71 20 131/78 (95) 100 Room Air Intake and Output 11/17/17 00:00 Intake Total 1980 ml Balance 1980 ml General Appearance: Alert, Oriented X3, Cooperative, No Acute Distress HEENT: Atraumatic, EOMI, Mucous Memb Moist/[place] Respiratory: Clear to Auscultation, Normal Air Movement Cardiovascular: Regular Rate, Normal S1, Normal S2, Other (II-III/ murmur, best heard at left sternal border) Abdominal: Normal Bowel Sounds, Soft, No Tenderness, No Masses Extremities: No Clubbing, No Cyanosis, No Edema, Normal Pulses Skin: No Rashes, No Significant Lesion Neuro: Normal Speech, Normal Tone, Sensation Intact, Cranial Nerves 3-12 NL Psych/Mental Status: Mental Status NL, Mood NL Hospital Course See final discharge diagnosis. Labs Laboratory Tests Test 11/14/17 16:37 11/14/17 16:39 11/14/17 17:35 11/15/17 05:27 Range/Units White Blood Count 16.2 H 10.3 4.3-11.0 10^3/uL Red Blood Count 4.15 L 3.54 L 4.35-5.85 10^6/uL Hemoglobin 11.3 L 9.9 L 11.5-16.0 G/DL Hematocrit 35 30 L 35-52 % Mean Corpuscular Volume 83 85 80-99 FL Mean Corpuscular Hemoglobin 27 28 25-34 PG Mean Corpuscular Hemoglobin Concent 33 33 32-36 G/DL Red Cell Distribution Width 14.9 H 14.7 H 10.0-14.5 % Platelet Count 502 H 390 130-400 10^3/uL Mean Platelet Volume 9.7 9.8 7.4-10.4 FL Neutrophils (%) (Auto) 76 H 58 42-75 % Lymphocytes (%) (Auto) 15 27 12-44 % Monocytes (%) (Auto) 9 12 0-12 % Eosinophils (%) (Auto) 1 2 0-10 % Basophils (%) (Auto) 0 0 0-10 % Neutrophils # (Auto) 12.3 H 6.0 1.8-7.8 X 10^3 Lymphocytes # (Auto) 2.4 2.8 1.0-4.0 X 10^3 Monocytes # (Auto) 1.4 H 1.2 H 0.0-1.0 X 10^3 Eosinophils # (Auto) 0.2 0.3 0.0-0.3 10^3/uL Basophils # (Auto) 0.0 0.0 0.0-0.1 10^3/uL Neutrophils % (Manual) 81 % Lymphocytes % (Manual) 18 % Monocytes % (Manual) 1 % Eosinophils % (Manual) 0 % Basophils % (Manual) 0 % Band Neutrophils 0 % Blood Morphology Comment NORMAL Sodium Level 136 138 135-145 MMOL/L Potassium Level 3.8 3.7 3.6-5.0 MMOL/L Chloride Level 103 109 H 98-107 MMOL/L Carbon Dioxide Level 19 L 20 L 21-32 MMOL/L Anion Gap 14 9 5-14 MMOL/L Blood Urea Nitrogen 7 7 7-18 MG/DL Creatinine 0.75 0.63 0.60-1.30 MG/DL Estimat Glomerular Filtration Rate > 60 > 60 BUN/Creatinine Ratio 9 11 Glucose Level 105 115 H 70-105 MG/DL Lactic Acid Level 1.34 0.50-2.00 MMOL/L Calcium Level 9.3 8.5 8.5-10.1 MG/DL Corrected Calcium 9.2 9.0 8.5-10.1 MG/DL Total Bilirubin 1.4 H 0.8 0.1-1.0 MG/DL Aspartate Amino Transf (AST/SGOT) 18 22 5-34 U/L Alanine Aminotransferase (ALT/SGPT) 34 35 0-55 U/L Alkaline Phosphatase 112 99 40-136 U/L Total Protein 8.3 H 6.6 6.4-8.2 GM/DL Albumin 4.1 3.4 3.2-4.5 GM/DL Serum Test, Qualitative NEGATIVE NEGATIVE Monoscreen NEGATIVE NEGATIVE Group A Streptococcus Screen NEGATIVE NEGATIVE Urine Color YELLOW Urine Clarity CLEAR Urine pH 7 5-9 Urine Specific Vendor 1.005 L 1.016-1.022 Urine Protein NEGATIVE NEGATIVE Urine Glucose (UA) NEGATIVE NEGATIVE Urine Ketones NEGATIVE NEGATIVE Urine Nitrite NEGATIVE NEGATIVE Urine Bilirubin NEGATIVE NEGATIVE Urine Urobilinogen 1 NORMAL MG/DL Urine Leukocyte Esterase 2+ H NEGATIVE Urine RBC (Auto) 2+ H NEGATIVE Urine RBC 0-2 /HPF Urine WBC 10-25 H /HPF Urine Squamous Epithelial Cells 5-10 /HPF Urine Crystals NONE /LPF Urine Bacteria MODERATE H /HPF Urine Casts NONE /LPF Urine Mucus NEGATIVE /LPF Urine Culture Indicated YES Test 11/16/17 05:15 11/16/17 14:27 11/17/17 05:40 Range/Units White Blood Count 10.4 10.2 4.3-11.0 10^3/uL Red Blood Count 3.63 L 3.56 L 4.35-5.85 10^6/uL Hemoglobin 9.9 L 9.9 L 11.5-16.0 G/DL Hematocrit 31 L 30 L 35-52 % Mean Corpuscular Volume 85 85 80-99 FL Mean Corpuscular Hemoglobin 27 28 25-34 PG Mean Corpuscular Hemoglobin Concent 32 33 32-36 G/DL Red Cell Distribution Width 15.0 H 14.6 H 10.0-14.5 % Platelet Count 434 H 510 H 130-400 10^3/uL Mean Platelet Volume 9.5 9.6 7.4-10.4 FL Neutrophils (%) (Auto) 56 60 42-75 % Lymphocytes (%) (Auto) 29 29 12-44 % Monocytes (%) (Auto) 11 7 0-12 % Eosinophils (%) (Auto) 4 4 0-10 % Basophils (%) (Auto) 0 0 0-10 % Neutrophils # (Auto) 5.9 6.1 1.8-7.8 X 10^3 Lymphocytes # (Auto) 3.0 3.0 1.0-4.0 X 10^3 Monocytes # (Auto) 1.1 H 0.7 0.0-1.0 X 10^3 Eosinophils # (Auto) 0.4 H 0.4 H 0.0-0.3 10^3/uL Basophils # (Auto) 0.0 0.0 0.0-0.1 10^3/uL Sodium Level 139 139 135-145 MMOL/L Potassium Level 3.9 4.2 3.6-5.0 MMOL/L Chloride Level 110 H 110 H 98-107 MMOL/L Carbon Dioxide Level 22 21 21-32 MMOL/L Anion Gap 7 8 5-14 MMOL/L Blood Urea Nitrogen 8 9 7-18 MG/DL Creatinine 0.63 0.61 0.60-1.30 MG/DL Estimat Glomerular Filtration Rate > 60 > 60 BUN/Creatinine Ratio 13 15 Glucose Level 104 105 70-105 MG/DL Calcium Level 8.9 9.0 8.5-10.1 MG/DL Corrected Calcium 9.4 8.5-10.1 MG/DL Total Bilirubin 0.4 0.1-1.0 MG/DL Aspartate Amino Transf (AST/SGOT) 18 5-34 U/L Alanine Aminotransferase (ALT/SGPT) 32 0-55 U/L Alkaline Phosphatase 101 40-136 U/L Total Protein 6.9 6.4-8.2 GM/DL Albumin 3.4 3.2-4.5 GM/DL Lab Scanned Report Referred Lab Report [id number] Radiology Reviewed Date of Exam: 11/14/17 CT ABDOMEN/PELVIS W PROCEDURE: CT abdomen and pelvis with contrast. TECHNIQUE: Multiple contiguous axial images were obtained through the abdomen and pelvis after administration of intravenous contrast. INDICATION: Head pain, fever, elevated white blood cell count, back pain. I have no priors. There are no opaque urinary tract calculi, however, the some mild ectasia of the right ureter showing urothelial thickening at its mid to proximal third as well as some urothelial thickening at the right renal pelvis. The right renal parenchyma also appears somewhat heterogeneous and hypoenhancing. The right kidney may be mildly enlarged when compared to the left and there is some mild right-sided perinephric edema. The constellation of findings are suggestive of features owing to pyelonephritis, correlate with urinalysis if not already performed. As an alternative in the appropriate clinical scenario, this pattern can be seen in the setting of a recently passed stone, however, no stones within the bladder lumen are evident. The left kidney and ureter appeared unremarkable. The liver, gallbladder, spleen, adrenals and pancreas unremarkable. The osseous structures appeared unremarkable. There is no abscess or fluid collection. The uterus and adnexa normal. IMPRESSION: 1. CT findings are most suggestive of a right-sided pyelonephritis without abscess. There is mild perinephric edema and mild urothelial thickening with minimal ureteral ectasia. Recently passed stone could conceivably have this appearance but is felt less likely, although warrants clinical correlation and urinalysis. 2. No other acute appearing abnormality. Discharge Condition at discharge stable Instructions to patient/family Please see electronic discharge instructions given to patient. Discharge Medications Reviewed and agree with Discharge Medication list on patient's Discharge Instruction sheet Clinical Quality Measures DVT/VTE Risk/Contraindication: Risk Factor Score Per Nursin RFS Level Per Nursing on Admit: 1=Low/No VTE PPX Copy Copies To 1: [facility]/DILCIA CHAVARRIA DO Nov 17, 2017 11:41
[2017-11-17] MEDS ORDERED: SULF1TAB35 PO (11:44)
--- NOTE | 2017-11-17 11:55 | Discharge Instructions ---
Discharge Inst-[facility] Discharge Medications New, Converted or Re-Newed RX: Transmitted to Pharmacy New Medications: Sulfamethoxazole/Trimethoprim (Bactrim Ds Tablet) 1 Each Tablet 1 EACH PO BID WITH MEALS for 5 Days, #10 TAB 0 Refills Patient Instructions Patient Instructions -marija la medicacion edgar lo prescrito (take medication as prescribed) -mantener la alysa de seguimiento edgar lo programado (keep follow up appointment as scheduled) -marija tylenol o ibuprofeno edgar sea necesario para el dolor (take tylenol or ibuprofen as needed for pain) -beber micheal agua (drink lots of water) -evitar las cosas con cafeina (avoid things with caffeine) Goal/Follow Up Appt: Monday 11/20 at 1:20 pm with Ivania Funez at [facility] For: severe pain, fever >101 that does not go down with tylenol or ibuprofen and lasts more than 24 hours, nausea or vomiting that makes you unable to keep down medications or clear liquids, severe rash that develops after taking prescribed medication, chest pain or pressure, shortness of breath not relieved by rest, or any other emergent complaints or concerns Activity & Diet Discharge Diet: No Restrictions Activity as Tolerated: Yes (no work until after cleared at discharge follow up appointment on Monday 11/20 at 1:20 pm) Copy Copies To 1: [facility]/DILCIA CHAVARRIA DO Nov 17, 2017 11:50
[2017-11-17 12:00] VITALS: BP 127/80
[2017-11-17 15:10] VITALS: BP 127/80
== END 2017-11-17 15:10 | disposition home or self-care (01) | DRG 690 ==
LOC: ER 16:26 → UNDOADMOB 18:34 → 4TH 18:34 → OBSVTOIN 11-16 14:27 → INTOOBSV 11-16 14:27 → UNDODISIN 11-17 15:10
PROVIDERS: ADMIT Family Medicine; ATTEND Family Medicine
DX: N10 Acute pyelonephritis (principal); R11.2 Nausea with vomiting, unspecified; K59.00 Constipation, unspecified; F17.210 Nicotine dependence, cigarettes, uncomplicated
CPT/HCPCS: 36415; 70450; 71045; 74177; 80048; 80053; 81000; 83605; 84703; 85007; 85025; 85027; 86308; 87040; 87077; 87088; 87186; 87430; G0378

== ENCOUNTER 2018-08-23 12:30 | Outpatient (CLI) | payer BC ==
[~2018-08-23] VITALS: Ht 151.1 cm; Wt 90.0 kg
[~2018-08-23 12:30] MED LIST: SULF1TAB35 PO
--- NOTE | 2018-08-23 12:33 | NUR ---
TALITA CHOWDHURY presented to unit via ambulation from home, accompanied by family, with c/o CONTRACTIONS. TALITA CHOWDHURY weighed, gowned, voided, and to bed. EFHM and TOCO applied, VS taken. TALITA CHOWDHURY oriented to bed controls, call light, TV, heat, and A/C controls.
[2018-08-23 13:32] LABS: BILIRUBIN,URINE NEGATIVE (NEGATIVE); CLARITY,URINE CLEAR; COLOR,URINE YELLOW; GLUCOSE, URINE (UA) NEGATIVE (NEGATIVE); KETONES,URINE NEGATIVE (NEGATIVE); LEUKOCYTE ESTERASE ,URINE NEGATIVE (NEGATIVE); NITRITE,URINE NEGATIVE (NEGATIVE); PH,URINE 6 (5-9); PROTEIN,URINE 2+ (NEGATIVE); UROBILINOGEN,URINE NORMAL (NORMAL)
[2018-08-23 13:44] LABS: BACTERIA,URINE TRACE /HPF
[2018-08-23 14:38] LABS: BASOPHILS % (AUTO) 0 % (0-10); EOSINOPHILS # (AUTO) 0.8 10^3/uL (0.0-0.3); EOSINOPHILS % (AUTO) 7 % (0-10); HEMATOCRIT 33 % (35-52); HEMOGLOBIN 10.7 G/DL (11.5-16.0); LYMPHOCYTES # (AUTO) 2.6 X 10^3 (1.0-4.0); LYMPHOCYTES % (AUTO) 23 % (12-44); MEAN CORPUSCULAR HEMOGLOBIN 26 PG (25-34); MEAN CORPUSCULAR HGB CONC 33 G/DL (32-36); MEAN CORPUSCULAR VOLUME 80 FL (80-99); MEAN PLATELET VOLUME 11.3 FL (7.4-10.4); MONOCYTES # (AUTO) 0.7 X 10^3 (0.0-1.0); MONOCYTES % (AUTO) 6 % (0-12); NEUTROPHILS # (AUTO) 7.4 X 10^3 (1.8-7.8); NEUTROPHILS % (AUTO) 64 % (42-75); PLATELET COUNT 303 10^3/uL (130-400); RED CELL DISTRIBUTION WIDTH 14.4 % (10.0-14.5); WHITE BLOOD COUNT 11.5 10^3/uL (4.3-11.0)
[2018-08-23 14:50] VITALS: BP 143/89
[2018-08-23] MEDS ORDERED: NS IV 1000 ML 1,000 ML ONE (14:50)
[2018-08-23 14:55] LABS: ALANINE AMINOTRANSFERASE 12 U/L (0-55); ALBUMIN 3.3 GM/DL (3.2-4.5); ALKALINE PHOSPHATASE 140 U/L (40-136); BILIRUBIN,TOTAL 0.4 MG/DL (0.1-1.0); BUN/CREATININE RATIO 14; CALCIUM 8.7 MG/DL (8.5-10.1); CARBON DIOXIDE 18 MMOL/L (21-32); CHLORIDE 110 MMOL/L (98-107); CREATININE SERUM 0.64 MG/DL (0.60-1.30); GFR ESTIMATED > 60; GLUCOSE 98 MG/DL (70-105); POTASSIUM 3.6 MMOL/L (3.6-5.0); SODIUM 136 MMOL/L (135-145); TOTAL PROTEIN 5.9 GM/DL (6.4-8.2); URIC ACID 6.1 MG/DL (2.6-7.2)
[2018-08-23] MEDS ORDERED: NS IV 1000 ML 1,000 ML IV SCH (15:00)
[2018-08-23] MEDS ORDERED: HYDR-3781 PO (15:58)
--- NOTE | 2018-08-23 16:20 | NUR ---
out of WS via ambulation to home self care with d/c instructions in hand. no s/s of distress noted.
[2018-08-23] MEDS ORDERED: hydrOXYzine (VISTARIL/ATARAX) 25 MG capsule/tablet PO SCH (17:00)
--- NOTE | 2018-09-03 15:24 | Physician Query-Final Dx ---
HILDA CHRISTIANSEN 09/03/18 1524: Clinic Account Progress/Dx Physician Query: Please give diagnosis Need dx and weeks of gestation Date of Service Aug 23, 2018 at 12:30 KATHIE GUPTA MD 09/08/18 1703: Clinic Account Progress/Dx DIAGNOSIS: Diagnosis Contractions 36 week gestation third trimester HILDA CHRISTIANSEN Sep 03, 2018 15:24 KATHIE GUPTA MD Sep 08, 2018 17:03
== END 2018-08-23 16:20 | disposition home or self-care (01) ==
LOC: LDRP 12:30 → WSo 12:30
PROVIDERS: ATTEND Family Medicine
DX: O62.9 Abnormality of forces of labor, unspecified (principal); Z3A.36 36 weeks gestation of pregnancy
CPT/HCPCS: 36415; 80053; 81000; 82570; 83615; 84156; 84550; 85025; 87088; 96360; 99214

== ENCOUNTER 2018-09-09 12:21 | Inpatient (IN) | payer BC, OTHER ==
[2018-09-09] VITALS (22 sets, daily range): BP systolic 134–179; BP diastolic 79–114
[~2018-09-09] VITALS: Ht 151.1 cm; Wt 96.6 kg
[~2018-09-09 12:21] MED LIST changes: +HYDR-3781 PO; +OXYTOCIN/NORMAL SALINE 1,000 ML IV ONE
--- NOTE | 2018-09-09 12:22 | NUR ---
pt transferred to room 320 via EMS cart with Gabby Miller Veits, RN, EMS staff, sales negotiator and this RN @ side. pt transferred to labor bed. monitors applied by this RN. pt affect calm. 1224- IVF's infusing via Lt.AC site. pt breathing with ctx's. 1225- SpO2 applied. maternal pulse 120's. FHR 135 via EFM. ctx's q 2 mins per palpation, strong. attempting BP, movement noted. pt rolling from side to side, unable to hold still on command. 1227- pt placed in lithotomy position. @ perineum. instructions given via sales negotiator r/t POC. 1229- SVE per . 10cm. AROM with amnio hook. clear fluid noted. pt thrashing in bed. moving up in bed when instructed to remain still. instructed pt to push with ctx's. noneffective pushing techniques used. pt c/o pain since last noc, "worst pain ever" via sales negotiator. refusing to push with ctx's. 1236- FSE applied by per this RN's request. unable to determine FHR vs maternal pulse. decels noted, micki into 90's x40 sec. returned to baseline of 140's. pt refusing to push with ctx's. rolled to Lt.side. moving up in bed. closed legs. reassurance and instructions given via sales negotiator. cont to refuse to push. 1241- O2 applied @ 10L per non rebreather mask. @ bedside. decel noted into 90's 6 mins, gradual return to baseline Dr. Osei remains @ bedside. encouraging pt to push with ctx's, refusing. kicking Dr and nursing staff. was requested @ bedside by Dr. Osei. notified by nursing staff. pt requesting c/s. refuses to push with ctx's. flailing in bed. holding hand over perineum to prevent SVE by . 1245- bottom of bed reapplied. O2 rate increased to 15L/non rebreather mask. 1246- @ bedside. FHR 110's. moderate variability noted. 1249- verbal consent obtained via sales negotiator for emergency c/s. 1250- GUERA Reyes @ bedside. 1251- monitors dc'd. transferred to OB c/s room with staff and sales negotiator @ side.
[2018-09-09] MEDS ORDERED: fentaNYL INJECTION 100 MCG/2 ML AMP ONE (13:05)
[2018-09-09] MEDS ORDERED: SUCCINYLCHOLINE INJ 100 MG/5 ML SYR ONE (13:06)
[2018-09-09] MEDS ORDERED: ONDANSETRON 4 MG/2 ML (SDV) Z0FRAN ONE (13:06)
[2018-09-09] MEDS ORDERED: proPOfol 200 MG/20 ML (DIPRIVAN) VIAL IV ONE (13:06)
[2018-09-09] MEDS ORDERED: ceFAZolin INJECTION 2,000 MG ONE (13:17)
[2018-09-09] MEDS ORDERED: OXYTOCIN/NORMAL SALINE 500 ML IV SCH (13:29)
[2018-09-09] MEDS ORDERED: TETANUS,DIPTH,PERTUSS P/F (BOOSTRIX) 0.5 ML VIAL IM SCH (13:30)
[2018-09-09] MEDS ORDERED: ONDANSETRON 4 MG/2 ML (SDV) Z0FRAN IVP PRN ×2 (13:30→14:00)
[2018-09-09] MEDS ORDERED: MEASLES,MUMPS,RUBELLA 1 EA INJ SC SCH (13:30)
--- NOTE | 2018-09-09 13:34 | History & Physical-OB ---
OB - Chief Complaint & HPI Date/Time Date of Admission: Date of Admission: Sep 09, 2018 at 12:21 Date seen by a Provider: Sep 09, 2018 Time Seen by a Provider: 11:50 Chief Complaint/History OB-Reason for Admission/Chief: Onset of Labor Hx : 5 Hx Para: 4 Expected Date of Delivery: Sep 19, 2018 Gestational Age in Weeks: 38 Gestational Age in Days: 4 Other 23 yo presented to clinic at [facility] with contractions for 24 hours, pain for the last week. Denied leaking fluid, had some stringy blood at times. Found to be completed dilated and effaced with bulging bag and brought by ambulance to the hospital. On arrival to Labor and Delivery heart tones initially 130s and AROM was done with clear fluid. Difficulty distinguishing between and maternal heart rate, so internal lead placed. Allergies and Home Medications Allergies Coded Allergies: No Known Drug Allergies (Unverified , 11/14/17) Home Medications Hydroxyzine Pamoate 25 Mg Capsule, 50 MG PO QID Prescribed by: WOODY OLIVIER on 08/23/18 1373 Patient Home Medication List Home Medication List Reviewed: No OB - History Hx of Present Care: Yes Obstetrical Complications: None Obstetrical History Hx : 5 Hx Para: 4 Hx # Term Pregnancies: 4 Hx # Pregnancies: 0 Hx Termination: No Hx Multiple Gestation: No Hx Ectopic : No Hx Stillbirth: No Hx Complication: No Hx Induced Hypertens: No Hx Maternal Gestational Diabet: No Hx Hemorrhage: No Delivery History Hx Dystocia: No Hx Forceps Assisted Delivery: No Hx Vacuum Extraction Assisted: No Hx Placenta Abnormality: No Hx Distress: No Hx Large For Gestational Age I: No Hx Small for Gestational Age I: No Hx Section: No Hx Vaginal Delivery Post C-Sec: No Hx Blood Disorders: No Adverse Rxn to Tranfusion: No Patient Past Medical History NA OB - Admission Exam Physical Exam Abdomen: Other (diffuse tenderness) Extremities: Edema Cervical Dilatation: 10cm Effacement: 100% Station: 0 OB - Assessment/Plan/Diagnosis Assessment Assessment: active labor, other ( distress, maternal distress) Admission Dx Active labor at full term 38 weeks gestation bradycardia- noted to have prolonged bradycardia in the 80s, mother in so much distress she was kicking and thrashing making even cervical exam impossible. Given prolonged bradycardia with maternal intolerance, requested Dr. Bland for emergent as mother would have required sedation even if operative vaginal delivery was attemptable, and baby was not well enough engaged for operative delivery. Maternal intolerance- patient complaining of severe persistent pain unlike any previous deliveries, concern for abruption or uterine rupture, but no vaginal bleeding, emergent as noted above. Admission Status: Inpatient Order (span 2 midnights) Reason for Inpatient Admission: Delivery and course Plan Plan: Section Copy Copies To 1: KATHIE GUPTA MD, BETHANY N MD Sep 09, 2018 13:34
[2018-09-09] MEDS ORDERED: HYDROcodone/APAP 7.5 MG/325 MG (LORTAB, LORCET PLUS) TABLET PO PRN (13:45)
--- NOTE | 2018-09-09 13:49 | Discharge Inst-Women's Service ---
Discharge Inst-Women's Serv Depart Medication/Instructions New, Converted or Re-Newed RX: RX on Chart Problems Reviewed?: Yes Consults/Follow Up Additional Follow Up: Yes Orders/Referrals Dr. Bland in 7-10 days and in [address] Osei Activity Driving Instructions: No Driving for 1 Week NO SMOKING: NO SMOKING Nothing Inside Vagina: No Douching, No [place], No Tampons Diet Discharge Diet: No Restrictions Symptoms to Report to : Bleeding Excessive, Pain Increased, Fever Over 101 Degrees F, Vaginal Bleeding Increase, Questions/Concerns For Any Problems or Questions: Contact Your Physician Skin/Wound Care Infection Signs and Symptoms: Increased Redness, Foul Odor of Wound, Increased Drainage, Skin Itchy or Has a Rash, Increased Swelling, Temperature Above 101 F Operative Area Clean and Dry: Keep Incision Clean/Dry Stitches/Stryker/Dermabond: Dermabond, Care of Stitches Bathing Instructions: XANDER Molina DO Sep 09, 2018 13:49
[2018-09-09] MEDS ORDERED: morphine INJ 10 MG/ML 1ML (SYR OR VIAL) ONE (13:55)
[2018-09-09] MEDS ORDERED: IBUP-844 PO (13:55)
[2018-09-09] MEDS ORDERED: DOCU100C37 PO (13:56)
[2018-09-09] MEDS ORDERED: HYDR-4226 PO (13:56)
[2018-09-09] MEDS ORDERED: morphine INJ 10 MG/ML 1ML (SYR OR VIAL) IVP ONE (14:00)
[2018-09-09] MEDS ORDERED: MEPERIDINE (DEMEROL) INJ 50 MG/ML IVP ONE (14:00)
[2018-09-09] MEDS ORDERED: fentaNYL INJECTION 100 MCG/2 ML AMP IVP ONE (14:00)
[2018-09-09] MEDS ORDERED: ceFAZolin INJECTION 1,000 MG VIAL IV ONE (14:00)
[2018-09-09] MEDS ORDERED: IBUPROFEN 600 MG (MOTRIN) TAB PO SCH (14:00)
[2018-09-09] MEDS ORDERED: LABETALOL HCL 20 MG/4 ML VIAL ONE (14:37)
[2018-09-09] MEDS ORDERED: FUROSEMIDE 40 MG/4 ML INJ (LASIX) ONE (14:37)
[2018-09-09] MEDS ORDERED: LABETALOL HCL 20 MG/4 ML VIAL IV ONE (14:45)
[2018-09-09] MEDS ORDERED: FUROSEMIDE 40 MG/4 ML INJ (LASIX) IVP ONE (14:45)
[2018-09-09] MEDS: HYDROmorphone 2 MG/ML VIAL (DILAUDID) IV PRN ×2 (14:51→20:18)
[2018-09-09] MEDS ORDERED: HYDROmorphone 2 MG/ML VIAL (DILAUDID) IV NR (15:15)
[2018-09-09] MEDS ORDERED: MAGNESIUM 4 GM/100 ML IVPB 100 ML IV NR (15:30)
--- NOTE | 2018-09-09 15:40 | NUR ---
Pt transferred via bed from PACU accompanied by PACU staff. Report rec'd bedside from Jenn Ta RN. Assessment completed, VS taken. SCD's on and activated. Attempt to assess and massage fundus difficult as pt resisting and pushes RN away. Explained importance of assessing fundus and bleeding, pt agrees to allow RN to assess. FFU/2 as far as RN can tell, but pt continues to push RN's hand away. Light rubra lochia noted on peripad, no clots expressed.
[2018-09-09] MEDS ORDERED: MAGNESIUM SULFATE DRIP 500 ML IV ONE (15:53)
--- NOTE | 2018-09-09 15:53 | NUR ---
Dr Bland called to clarify magnesium orders.
[2018-09-09] MEDS ORDERED: MAGNESIUM 4 GM/100 ML IVPB 100 ML IV SCH (16:30)
[2018-09-09] MEDS ORDERED: CALCIUM GLUC. 10% 4.65 MEQ/10 ML VIAL IV PRN (16:30)
--- NOTE | 2018-09-09 16:30 | NUR ---
Pt with family at bedside. Education provided that family may stay as long as they are quiet and calm, lights must remain off and stimulus must remain a minimum d/t elevated pressures and seizure risk. If family cannot abide, they will be asked to leave. Family agrees.
--- NOTE | 2018-09-09 16:40 | NUR ---
Dr. Bland notified that pre-delivery labs were not completed d/t circumstances of delivery. Orders rec'd for CBC, CMP, Uric acid now.
[2018-09-09] MEDS: MAGNESIUM SULFATE DRIP 500 ML IV SCH (16:45)
--- NOTE | 2018-09-09 16:56 | OPERATIVE REPORT ---
DATE OF SERVICE: 09/09/2018 PREOPERATIVE DIAGNOSES: 1. A 23-year-old female with intolerance of labor. 2. Abdominal pain and second stage labor. POSTOPERATIVE DIAGNOSES: 1. A 23-year-old female with intolerance of labor. 2. Abdominal pain and second stage labor. PROCEDURE PERFORMED: Emergency primary section. SURGEON: Chuy Johnson DO ANESTHESIA: General endotracheal. URINE OUTPUT: 750 mL. URINE OUTPUT: 10 mL, clear at the end of procedure. FLUIDS: A 1300 mL lactated Ringer's solution. FINDINGS: A live male weighing 7 pounds 11 ounces. Grossly normal appearing uterus, bilateral fallopian tubes and ovaries with implantations of the posterior cul-de-sac as well as the left fallopian tube suspicious for endometriosis. SPECIMEN SENT: Placenta and peritoneal implant. INDICATIONS FOR PROCEDURE: This is a 23-year-old female who is a , presented to the [facility] earlier today per caitlyn Juan. She was transported via EMS with Dr. Osei present during the transport. When she arrived to the hospital, artificial rupture of membranes was performed and clear fluid was noted. There were heart rate decelerations into the 80s to 90s with slow return back to normal with each push, heart rate would drop. The patient began to refuse to push despite her being complete and close to delivery. The patient reported that she had significant amounts of lower abdominal pain that was constant and causing her more pain, so she refused to push. She said that this was different than any other delivered that she had in the past and that the pain was not normal. Due to the patient's refusal to push, she was requesting a . heart rate tracing did not look like it would tolerate this much longer. Therefore, she was quickly consented using an nut blanker operator present as the patient's primary language is [place]an and taken to the operating room where general anesthesia was administered. OPERATIVE REPORT IN DETAIL: Once in the operating room, the patient was urgently placed on the patient and prepped and draped in normal sterile fashion. Once general anesthesia is noted to be given and endotracheal access and intubation has been performed, I have given the okay by Anesthesia to begin the procedure. A Pfannenstiel skin incision was then made with a knife and carried down to underlying fascia using the knife. The fascia was then extended using blunt traction. The rectus muscles were down the midline using blunt traction. I entered the peritoneum using blunt injury and blunt traction. An Greg ring retractor was placed in the peritoneal incision in the lower uterine segment, which was identified and found to be thinned out. I made a low transverse incision to the vesicouterine peritoneum and bluntly dissect this off. I then proceeded with myotomy until membranes were visualized, at which point I extended the uterine incision laterally and superiorly using bandage scissors. The was found in vertex presentation. With gentle fundal pressure, the infant's head was elevated up to the incision where it is bulb suctioned. Anterior and posterior shoulders were delivered and was then brought to the operative field where the cord was doubly clamped and cut and infant was handed off to Dr. Osei who was present for delivery. Cord blood was collected. Three-vessel cord was intact. Placenta was delivered spontaneously thereafter. IV Pitocin was initiated to facilitate uterine contraction. Uterine fundus became firmer with bimanual massage. Uterus was then exteriorized and cleared of all endometrial clots and debris. I then proceeded with closing the uterine incision using #0 Vicryl suture in a running locked fashion. A second layer of imbricating #0 Monocryl was placed. Excellent hemostasis was noted after doing this. I then placed the uterus back within the pelvis after identifying a peritoneal implant, which was bluntly dissected off of the serosa of the fallopian tube. There was no bleeding noted from this separation. Once the uterus back within the pelvis, I copiously irrigated the pelvis using normal saline. There was no active bleeding noted from any of my dissection planes. I placed Interceed antiadhesive over my low transverse incision and proceeded with closing the peritoneum using 3-0 Vicryl suture in running fashion after the Greg ring retractor was removed. The rectus muscles were reapproximated using 3-0 Vicryl suture in interrupted fashion. The fascia was reapproximated using #0 Vicryl suture in running fashion. Subcutaneous tissue was reapproximated using 3-0 plain interrupted subcutaneous stitch and skin reapproximated using 4-0 Monocryl in a running subcuticular. Dermabond was applied to incision and sterile dressing with adhesive white tape. Two grams of Ancef were given intraoperatively for infection prophylaxis. The patient tolerated the procedure well and sent to recovery in stable condition. Lap and sponge counts were correct at the end of procedure. Instrument counts correct as well. Job ID: [id number] DocumentID: [id number] Dictated Date: 09/09/2018 13:45:04 Endoscopy Technician Date: 09/09/2018 16:56:06 Dictated By: CHUY JOHNSON DO
[2018-09-09] MEDS ORDERED: KETOROLAC 30 MG/ML VIAL ONE (17:00)
[2018-09-09 17:01] LABS: BASOPHILS % (AUTO) 0 % (0-10); EOSINOPHILS # (AUTO) 0.1 10^3/uL (0.0-0.3); EOSINOPHILS % (AUTO) 1 % (0-10); HEMATOCRIT 32 % (35-52); HEMOGLOBIN 10.5 G/DL (11.5-16.0); LYMPHOCYTES # (AUTO) 1.4 X 10^3 (1.0-4.0); LYMPHOCYTES % (AUTO) 8 % (12-44); MEAN CORPUSCULAR HEMOGLOBIN 26 PG (25-34); MEAN CORPUSCULAR HGB CONC 33 G/DL (32-36); MEAN CORPUSCULAR VOLUME 79 FL (80-99); MEAN PLATELET VOLUME 11.6 FL (7.4-10.4); MONOCYTES # (AUTO) 0.7 X 10^3 (0.0-1.0); MONOCYTES % (AUTO) 4 % (0-12); NEUTROPHILS # (AUTO) 15.6 X 10^3 (1.8-7.8); NEUTROPHILS % (AUTO) 87 % (42-75); PLATELET COUNT 313 10^3/uL (130-400); RED CELL DISTRIBUTION WIDTH 14.8 % (10.0-14.5); WHITE BLOOD COUNT 17.9 10^3/uL (4.3-11.0)
[2018-09-09] MEDS: KETOROLAC 30 MG/ML VIAL IVP PRN (17:05)
--- NOTE | 2018-09-09 17:15 | NUR ---
Dr. Bland notified of continued elevated pressures despite magnesium. Order for 200mg labetolol PO TID rec'd.
[2018-09-09 17:17] LABS: ALANINE AMINOTRANSFERASE 7 U/L (0-55); ALBUMIN 3.1 GM/DL (3.2-4.5); ALKALINE PHOSPHATASE 143 U/L (40-136); BILIRUBIN,TOTAL 0.4 MG/DL (0.1-1.0); BUN/CREATININE RATIO 13; CALCIUM 8.2 MG/DL (8.5-10.1); CARBON DIOXIDE 19 MMOL/L (21-32); CHLORIDE 107 MMOL/L (98-107); CREATININE SERUM 0.64 MG/DL (0.60-1.30); GFR ESTIMATED > 60; GLUCOSE 85 MG/DL (70-105); MAGNESIUM 3.5 MG/DL (1.8-2.4); SODIUM 136 MMOL/L (135-145); TOTAL PROTEIN 5.6 GM/DL (6.4-8.2); URIC ACID 6.7 MG/DL (2.6-7.2)
--- NOTE | 2018-09-09 17:55 | NUR ---
Order rec'd for additional one time dose of 200mg labetolol rec'd at midnight.
--- NOTE | 2018-09-09 18:00 | NUR ---
To room to check on pt. Pt sleeping soundly. Fischer catheter emptied - 425 dark yellow urine obtained. Sister at bedside holding .
--- NOTE | 2018-09-09 18:50 | NUR ---
Attempt to do pericare and change chux, vpad. Pt refuses to move. Perineum wiped and reddy care done as best as possible. Pt requesting food. Clear liquid tray ordered for pt.
--- NOTE | 2018-09-09 20:00 | NUR ---
Pt's BP elevated, every light in room on now, all were out 30 minutes earlier, pt. on speakerphone talking loudly. Had sister interpret that lights need to be out, pt. needs to not be on phone & to rest, pt. verbalized understanding & hung up phone. Lights out, will cont. to monitor. POC reviewed w/sister interpreting, pt. verbalized understanding & appreciative. FF U/2, lt rubra lochia, no clots, pericare done & new pad on.
[2018-09-09] MEDS: METOCLOPRAMIDE 10 MG (REGLAN) TAB PO SCH (20:17)
[2018-09-09] MEDS: DOCUSATE SODIUM 100 MG (COLACE) CAP PO SCH (20:17)
[2018-09-09] MEDS ORDERED: LABETALOL 200 MG (NORMODYNE) TAB PO SCH (21:00)
[2018-09-09] MEDS: CATHETER FLUSH 10 ML SYR IV SCH ×2 (21:25→21:26)
[2018-09-09] MEDS: D5 LR IV SOLUTION 1,000 ML IV SCH (22:58)
--- NOTE | 2018-09-09 23:30 | NUR ---
Urine collected from F/C & sent to lab for UDS ordered per Dr. Osei.
[2018-09-09 23:52] LABS: AMPHETAMINE SCREEN, URINE NEGATIVE (NEGATIVE); BARBITURATE SCREEN URINE NEGATIVE (NEGATIVE); BENZODIAZEPINES SCREEN URINE NEGATIVE (NEGATIVE); CANNABINOID SCREEN, URINE NEGATIVE (NEGATIVE); COCAINE SCREEN URINE NEGATIVE (NEGATIVE); METHADONE STAT NEGATIVE (NEGATIVE); METHAMPHETAMINE SCREEN URINE S NEGATIVE (NEGATIVE); OPIATE SCREEN URINE POSITIVE (NEGATIVE); OXYCODONE STAT NEGATIVE (NEGATIVE); PROPOXYPHENE STAT NEGATIVE (NEGATIVE); TRICYCLIC ANTIDEPRESSANTS SCRE NEGATIVE (NEGATIVE)
[2018-09-10] VITALS (14 sets, daily range): BP systolic 119–167; BP diastolic 64–99
[2018-09-10] MEDS ORDERED: LABETALOL 200 MG (NORMODYNE) TAB PO NR
[2018-09-10] MEDS: KETOROLAC 30 MG/ML VIAL IVP PRN ×2 (00:17→06:31)
[2018-09-10] MEDS: D5 LR IV SOLUTION 1,000 ML IV SCH (00:46)
[2018-09-10] MEDS: HYDROmorphone 2 MG/ML VIAL (DILAUDID) IV PRN (02:37)
[2018-09-10] MEDS: METOCLOPRAMIDE 10 MG (REGLAN) TAB PO SCH ×3 (02:37→18:00)
[2018-09-10] MEDS: MAGNESIUM SULFATE DRIP 500 ML IV SCH (03:05)
--- NOTE | 2018-09-10 05:37 | NUR ---
Dr. Bland called to check on pt, update given, no new orders rc'd.
[2018-09-10 05:39] LABS: BASOPHILS % (AUTO) 0 % (0-10); EOSINOPHILS # (AUTO) 0.5 10^3/uL (0.0-0.3); EOSINOPHILS % (AUTO) 5 % (0-10); HEMATOCRIT 26 % (35-52); HEMOGLOBIN 8.3 G/DL (11.5-16.0); LYMPHOCYTES # (AUTO) 2.1 X 10^3 (1.0-4.0); LYMPHOCYTES % (AUTO) 24 % (12-44); MEAN CORPUSCULAR HEMOGLOBIN 26 PG (25-34); MEAN CORPUSCULAR HGB CONC 32 G/DL (32-36); MEAN CORPUSCULAR VOLUME 79 FL (80-99); MONOCYTES # (AUTO) 0.7 X 10^3 (0.0-1.0); MONOCYTES % (AUTO) 7 % (0-12); NEUTROPHILS # (AUTO) 5.5 X 10^3 (1.8-7.8); NEUTROPHILS % (AUTO) 63 % (42-75); PLATELET COUNT 251 10^3/uL (130-400); RED CELL DISTRIBUTION WIDTH 14.8 % (10.0-14.5); WHITE BLOOD COUNT 8.8 10^3/uL (4.3-11.0)
[2018-09-10] MEDS: CATHETER FLUSH 10 ML SYR IV SCH (06:31)
--- NOTE | 2018-09-10 07:00 | NUR ---
REPORT FROM JAVID HOWARD.
--- NOTE | 2018-09-10 08:30 | NUR ---
DR JOHNSON HERE NEW ORDERS RECEIVED.
--- NOTE | 2018-09-10 08:43 | Postpartum Progress Note ---
Note Note Day # 1 Subjective: Patient is without complaints. Ambulating, voiding. Tolerating a regular diet without nausea or vomiting. Normal lochia. Pain is well controlled with oral pain medications. Objective: Physical Exam: General - Alert and oriented, no apparent distress Abdomen - Soft, appropriately tender to palpation, non-distended, fundus firm at umbilicus Extremities - no edema, negative Teresa's bilaterally Incision: c/d/i Assessment: POD 1 PLTCS Peripartum preE MgSO4 infusion Plan: Routine care. Encourage breast feeding. Encourage ambulation. Ferrous sulfate supplementation. Stopping MgSO4 this AM Converting to Norvasc from Labetalol Vitals - Labs Vital Signs - I&O Vital Signs Date Time Temp Pulse Resp B/P (MAP) Pulse Ox O2 Delivery O2 Flow Rate FiO2 09/10/18 07:00 89 18 134/88 (103) 09/10/18 07:00 98.3 89 18 134/88 (103) 94 Room Air 09/10/18 06:00 98.7 93 18 125/83 (97) 93 Room Air 09/10/18 06:00 93 18 125/83 (97) 09/10/18 05:00 90 18 131/79 (96) 93 Room Air 09/10/18 05:00 90 18 131/79 (96) 09/10/18 04:00 98.3 93 18 126/76 (93) 95 Room Air 09/10/18 04:00 93 18 126/76 (93) 09/10/18 03:00 89 18 119/75 (90) 09/10/18 03:00 98.4 89 18 119/75 (90) 97 Room Air 09/10/18 02:00 88 18 135/78 (97) 09/10/18 02:00 88 18 135/78 (97) 97 Room Air 09/10/18 01:00 90 18 120/76 (91) 09/10/18 01:00 98.8 90 18 120/76 (91) 97 Room Air 09/10/18 00:00 95 18 121/64 (83) 09/10/18 00:00 98.0 95 18 121/64 (83) 96 Room Air 09/09/18 23:00 98.0 90 18 134/79 (97) 96 Room Air 09/09/18 23:00 90 18 134/79 (97) 09/09/18 22:00 98.1 101 18 144/90 (108) 96 Room Air 09/09/18 22:00 101 18 144/90 (108) 09/09/18 21:00 98.6 94 18 136/83 (100) 96 Room Air 09/09/18 21:00 94 18 136/83 (100) 09/09/18 20:00 97 18 160/103 (122) 09/09/18 20:00 98.0 97 18 160/103 (122) 97 Room Air 09/09/18 18:00 89 18 150/101 (117) 94 Room Air 09/09/18 17:15 96 Room Air 09/09/18 17:15 93 18 176/109 (131) 97 Room Air 09/09/18 17:00 97.6 97 18 163/110 (127) 96 Room Air 09/09/18 16:45 97 18 178/114 (135) 95 Room Air 09/09/18 16:30 94 18 173/109 (130) Room Air 09/09/18 16:15 95 18 165/108 (127) 96 Room Air 09/09/18 15:40 98.4 93 20 155/100 (118) 97 Room Air 09/09/18 15:30 16 97 Room Air 09/09/18 15:30 OxyMask 2 09/09/18 15:20 16 97 Room Air 09/09/18 15:15 OxyMask 2 09/09/18 15:10 15 98 Room Air 09/09/18 15:02 OxyMask 2 09/09/18 15:00 15 97 Room Air 09/09/18 14:50 98.2 12 98 Room Air 09/09/18 14:45 OxyMask 2 09/09/18 14:40 13 98 Room Air 09/09/18 14:30 12 98 Room Air 09/09/18 14:29 OxyMask 2 09/09/18 14:20 18 100 OxyMask 3 09/09/18 14:15 OxyMask 5 09/09/18 14:10 13 100 OxyMask 3 09/09/18 14:00 OxyMask 10 09/09/18 14:00 10 98 OxyMask 5 09/09/18 13:47 OxyMask 10 09/09/18 13:47 98.3 16 100 OxyMask 10 09/09/18 12:48 118 156/100 (118) 09/09/18 12:38 168/103 (124) 09/09/18 12:35 135 99 Room Air 09/09/18 12:30 145 100 Room Air 09/09/18 12:25 98.2 122 100 Room Air I & O 09/10/18 07:00 Intake Total 1700 ml Output Total 2800 ml Balance -1100 ml Labs Laboratory Tests 09/09/18 16:50: White Blood Count 17.9H, Red Blood Count 4.07L, Hemoglobin 10.5L, Hematocrit 32L , Mean Corpuscular Volume 79L, Mean Corpuscular Hemoglobin 26, Mean Corpuscular Hemoglobin Concent 33, Red Cell Distribution Width 14.8H, Platelet Count 313, Mean Platelet Volume 11.6H, Neutrophils (%) (Auto) 87H, Lymphocytes (%) (Auto) 8L, Monocytes (%) (Auto) 4, Eosinophils (%) (Auto) 1, Basophils (%) (Auto) 0, Neutrophils # (Auto) 15.6H, Lymphocytes # (Auto) 1.4, Monocytes # (Auto) 0.7, Eosinophils # (Auto) 0.1, Basophils # (Auto) 0.0, Sodium Level 136, Potassium Level 4.0, Chloride Level 107, Carbon Dioxide Level 19L, Anion Gap 10, Blood Urea Nitrogen 8, Creatinine 0.64, Estimat Glomerular Filtration Rate > 60, BUN/Creatinine Ratio 13, Glucose Level 85, Uric Acid 6.7, Calcium Level 8.2L, Corrected Calcium 8.9, Magnesium Level 3.5H, Total Bilirubin 0.4, Aspartate Amino Transf (AST/SGOT) 17, Alanine Aminotransferase (ALT/SGPT) 7, Alkaline Phosphatase 143H, Total Protein 5.6L, Albumin 3.1L 09/09/18 23:30: Urine Opiates Screen POSITIVEH, Urine Oxycodone Screen NEGATIVE, Urine Methadone Screen NEGATIVE, Urine Propoxyphene Screen NEGATIVE, Urine Barbiturates Screen NEGATIVE, Ur Tricyclic Antidepressants Screen NEGATIVE, Urine Phencyclidine Screen NEGATIVE, Urine Amphetamines Screen NEGATIVE, Urine Methamphetamines Screen NEGATIVE, Urine Benzodiazepines Screen NEGATIVE, Urine Cocaine Screen NEGATIVE, Urine Cannabinoids Screen NEGATIVE 09/10/18 05:30: White Blood Count 8.8, Red Blood Count 3.24L, Hemoglobin 8.3#L, Hematocrit 26L, Mean Corpuscular Volume 79L, Mean Corpuscular Hemoglobin 26, Mean Corpuscular Hemoglobin Concent 32, Red Cell Distribution Width 14.8H, Platelet Count 251, Mean Platelet Volume 11.0H, Neutrophils (%) (Auto) 63, Lymphocytes (%) (Auto) 24, Monocytes (%) (Auto) 7, Eosinophils (%) (Auto) 5, Basophils (%) (Auto) 0, Neutrophils # (Auto) 5.5, Lymphocytes # (Auto) 2.1, Monocytes # (Auto) 0.7, Eosinophils # (Auto) 0.5H, Basophils # (Auto) 0.0 XANDER JOHNSON DO Sep 10, 2018 08:43
[2018-09-10] MEDS: DOCUSATE SODIUM 100 MG (COLACE) CAP PO SCH ×2 (09:16→23:56)
--- NOTE | 2018-09-10 09:20 | NUR ---
MAG OFF, IV HEP LOCKED, MELBA TONY. SCHEDULED MEDS GIVEN.
--- NOTE | 2018-09-10 09:50 | NUR ---
DR BENAVIDEZ HERE VISITING WITH PT.
[2018-09-10] MEDS: HYDROcodone/APAP 5 MG/325 MG (LORTAB) TAB PO PRN ×2 (10:27→19:05)
--- NOTE | 2018-09-10 10:27 | NUR ---
LORTAB 2 TABLETS GIVEN PO FOR PAIN.
--- NOTE | 2018-09-10 11:00 | NUR ---
ASSISTED PT UP TO SHOWER, AMBULATED WELL, LINENS CHANGED, PT TOLERATED WELL.
--- NOTE | 2018-09-10 11:00 | NUR ---
PT VOIDED 500ML
[2018-09-10] MEDS ORDERED: amLODIPine 5 MG (NORVASC) TAB PO SCH (12:00)
--- NOTE | 2018-09-10 12:30 | NUR ---
SCHEDULED MEDS GIVEN PER DR ORDERS.
[2018-09-10] MEDS: IBUPROFEN 600 MG (MOTRIN) TAB PO SCH ×3 (12:43→23:56)
--- NOTE | 2018-09-10 13:18 | Anesthesia-General Post-Op ---
General Patient Condition Mental Status/LOC: Same as Preop Cardiovascular: Satisfactory Nausea/Vomiting: Absent Respiratory: Satisfactory Pain: Controlled Complications: Absent Post Op Complications Complications None Follow Up Care/Instructions Patient Instructions None needed. Anesthesia/Patient Condition Patient Condition Patient is doing well, no complaints, stable vital signs, no apparent adverse anesthesia problems. No complications reported per nursing. PAPI GONZALES CRNA Sep 10, 2018 13:18
--- NOTE | 2018-09-10 13:20 | NUR ---
DR JOHNSON CALLED, UPDATE GIVEN NO NEW ORDERS.
--- NOTE | 2018-09-10 19:00 | NUR ---
REPORT TO GOVIND HOWARD.
[2018-09-11] MEDS: METOCLOPRAMIDE 10 MG (REGLAN) TAB PO SCH ×3 (00:21→12:36)
[2018-09-11 04:10] VITALS: BP 141/89
[2018-09-11] MEDS: HYDROcodone/APAP 5 MG/325 MG (LORTAB) TAB PO PRN (04:42)
[2018-09-11] MEDS: IBUPROFEN 600 MG (MOTRIN) TAB PO SCH ×2 (06:44→12:36)
--- NOTE | 2018-09-11 07:45 | NUR ---
Dr. Bland here. Updated on pt pressures overnight. Pt voiding adequately but not much motivation to get up and ambulate. Will increase Norvasc dosage this AM. Pending D/C orders rec'd.
--- NOTE | 2018-09-11 07:49 | Postpartum Progress Note ---
Note Note Day # 2 Subjective: Patient is without complaints. Ambulating, voiding. Tolerating a regular diet without nausea or vomiting. Normal lochia. Pain is well controlled with oral pain medications. Objective: Physical Exam: General - Alert and oriented, no apparent distress Abdomen - Soft, appropriately tender to palpation, non-distended, fundus firm at umbilicus Extremities - no edema, negative Teresa's bilaterally Incision- c/d/i Assessment: POD 2 PLTCS preE- labile BP, increasing Norvasc to 10 Acute blood loss anemia Plan: Routine care. Encourage breast feeding. Encourage ambulation. Ferrous sulfate supplementation. Plan for discharge today or tomorrow Vitals - Labs Vital Signs - I&O Vital Signs Date Time Temp Pulse Resp B/P (MAP) Pulse Ox O2 Delivery O2 Flow Rate FiO2 09/11/18 04:10 98.8 98 16 141/89 (106) 96 09/10/18 23:50 97.8 90 18 154/90 (111) 96 09/10/18 19:30 98.6 101 18 159/85 (109) 94 09/10/18 18:00 97.9 98 18 167/99 (121) 98 Room Air 09/10/18 12:30 97.8 78 18 140/78 (98) 99 Room Air 09/10/18 09:00 80 18 139/96 (110) 96 Room Air 09/10/18 08:00 98.0 81 18 143/99 (114) 96 Room Air I & O 09/11/18 07:00 Intake Total 3360 ml Output Total 4125 ml Balance -765 ml XANDER JOHNSON DO Sep 11, 2018 07:49
[2018-09-11 08:29] VITALS: BP 156/99
[2018-09-11] MEDS: DOCUSATE SODIUM 100 MG (COLACE) CAP PO SCH (08:31)
[2018-09-11] MEDS ORDERED: amLODIPine 5 MG (NORVASC) TAB PO SCH (09:00)
[2018-09-11 10:30] VITALS: BP 153/104
[2018-09-11 12:36] VITALS: BP 147/98
--- NOTE | 2018-09-11 15:07 | NUR ---
DR JOHNSON CALLED UNIT TO CHECK ON PT. NOTIFIED OF BP'S, PT DECLINES VAUGHN, SOA, BLURRY VISION, EPIGASTRIC PAIN. ORDERS FOR 20MG PO LASIX. PT MAY D/C HOME THIS EVENING WITH FOLLOW UP PLANNED FOR THURSDAY TO CHECK BP IN OFFICE.
[2018-09-11] MEDS ORDERED: FUROSEMIDE 20 MG (LASIX) TAB PO ONE (15:30)
[2018-09-11 16:40] VITALS: BP 155/105
--- NOTE | 2018-09-11 16:50 | NUR ---
DR. JOHNSON NOTIFIED OF LATEST PRESSURE. OK TO D/C HOME, CALL IN [facility] PRES[facility] FOR PT.
--- NOTE | 2018-09-11 17:07 | NUR ---
YUDI MCCOLLUM CALLED TO [facility] VOICEMAIL.
[2018-09-11] MEDS ORDERED: AMLO10TA4 PO (17:08)
--- NOTE | 2018-09-11 17:55 | NUR ---
DISCHARGE INSTRUCTIONS EXPLAINED TO PT UTILIZING LANGUAGE LINE, EXTRA EMPHASIS GIVEN ON PRE-E S/S TO LOOK FOR AND IMPORTANCE OF REPORTING ANY IMMEDIATELY. COPY PROVIDED TO PT ALONG WITH PRESCRIPTIONS. PT NOTIFIED OF NORVAS CALLED TO [facility] AND IMPORTANCE OF FILLING AND TAKING DAILY. PT NOTIFIED OF FOLLOW UP IMPORTANCE. PT VERBALIZES UNDERSTANDING OF TEACHINGS PER LANGUAGE LINE CUSTOMER SUPPORT CONSULTANT AND SIGNS TO VERIFY. DENIES QUESTIONS OR CONCERNS AT THIS TIME. IV REMOVED.
--- NOTE | 2018-09-11 18:05 | NUR ---
PT ASSISTED TO WHEELCHAIR, TAKEN OFF UNIT ACCOMPANIED BY FAMILY AND RN TO PRIVATE VEHICLE. ALL PERSONAL BELONGINGS WITH PT. NO S/S OF DISTRESS NOTED.
--- NOTE | 2018-09-15 17:28 | Physician Query Clarification ---
PQ-Link Path Diagnosis Admission/Discharge Admission Date: Sep 09, 2018 at 12:21 Discharge Date: Sep 11, 2018 at 18:05 The medical record reflects the following: peritoneal implant The pathology report findings document: HEMORRHAGIC INFARCTION OF BENIGN PERITONEAL TISSUE Question: Do you agree with the pathology report findings of hemorrhagic infarction of benign peritoneal tissue? Please document a response in Progress Notes or Discharge Summary. 1. Agree with pathological diagnosis of hemorrhagic infarction of benign peritoneal tissue. 2. No - Do not agree with pathology findings, please list dx. 3. Other, with explanation of the clinical findings. 4. Clinically undetermined, no explanation for the clinical findings. Is is appropriate for a provider to add additional documentation (addenda) to the record to explain the evaluation & care up to 30 days post-discharge. See [facility] and Patient Record Guidelines below. The [facility] Chapter Record of Care, Standard; RC.01.03.01EP 1: "The hospital has a written policy that required timely entry of information into the medical record." According to [facility] Patient Record Guidelines, ARTICLE XXI. CORRECTIONS AND ADDENDA, Modifications (addenda amendments, corrections and retractions) should be made timely and no later than regulatory requirements for record completion (i.e. 30 days post discharge). Official coding guidelines require coders to query the physician for agreement with pathology findings that occur during the encounter. Coders are not allowed to pull information directly from the path reports. PHYSICIAN RESPONSE Pathology Report Findings: Yes,agree w/path dx as documented Explanation of clincal finding However, my documentation at the time cannot reflect unknown pathology at the time. Therefore it is documented appropriately. Please remember a lack of response to the above will prompt a phone page by CDI/Coding staff. In responding to this query, please exercise your independent professional judgment. The purpose of this communication is to more accurately reflect the complexity of your patients condition. The fact that a question is asked does not imply that any particular answer is desired or expected. Thank you for your timely response to this clarification. Requestors name: [employer]emy Phone # [phone] THIS PHYSICIAN QUERY FORM IS A PERMANENT PART OF THE MEDICAL RECORD NOEMY CHRISTIANSEN Sep 15, 2018 17:28 XANDER JOHNSON DO Sep 15, 2018 18:18
== END 2018-09-11 18:05 | disposition home or self-care (01) | DRG 787 ==
LOC: LDRP 12:21
PROVIDERS: ADMIT Family Medicine; ATTEND Family Medicine
PROC: 0UB60ZX Excision of Left Fallopian Tube, Open Approach, Diagnostic (ICD-10-PCS; 2018-09-09)
PROC: 10D00Z1 Extraction of Products of Conception, Low, Open Approach (ICD-10-PCS; principal; 2018-09-09 12:53)
DX: O76 Abnormality in fetal heart rate and rhythm complicating labor and delivery (principal); O90.81 Anemia of the puerperium; D62 Acute posthemorrhagic anemia; O14.95 Unspecified pre-eclampsia, complicating the puerperium; O26.893 Other specified pregnancy related conditions, third trimester; N83.8 Other noninflammatory disorders of ovary, fallopian tube and broad ligament; Z3A.38 38 weeks gestation of pregnancy; Z37.0 Single live birth
CPT/HCPCS: 36415; 80053; 80306; 83735; 84550; 85025; 86850; 86900; 86901; 88305; 88307; 94664